=== PATIENT | female | born 1975 | race Two or more races ===

== ENCOUNTER 2024-11-28 11:00 | Inpatient (IN) | payer MEDICAID, OTHER ==
[~2024-11-28] VITALS: Ht 154.9 cm; Wt 70.5 kg
[2024-11-28 01:00] VITALS: BP_SYST 112; BP_SYST 72; BP_SYST 77; BP_DIAS 33; BP_DIAS 36; BP_DIAS 41; PULSE 70; RESP 18; TEMP 98.2; O2SAT 97
--- NOTE | 2024-11-28 11:21 | ED.PDOC ---
HPI Comments 49 year old female presents to the ED with chief complaint of syncope. Patient reports that she had a syncopal episode 2 days ago after getting up from bed, landing on her right side, hurting her right arm. Patient relays that she has frequent dizzy spells when getting up and this isn't the first time she has had a syncopal episode. Patient denies any chest pain, headache, nausea, vomiting, LOC, SOB, fever, or chills. Chief Complaint: Syncope Time Seen by MD: 11:18 Reviewed Notes: Nurses Notes, Medications, Allergies Allergies: Coded Allergies: NO KNOWN ALLERGIES (Unverified , 11/28/24) Information Source: Patient Mode of Arrival: Wheelchair Severity: Moderate Timing: Days Duration: Minutes Prehospital treatment: None Onset: At Rest Cardiac Risk Factors: Diabetes PE Risk Factors: None Associated Signs and Symptoms: Syncope Past Medical History PAST MEDICAL HISTORY: DM, Hypotension Past Medical History (Other): Glaucoma Surgical History: Denies all surgeries PROJECT FINANCE ANALYST History: No Pertinent PROJECT FINANCE ANALYST History Family History Family History: Reviewed,noncontributory to illness Social History Smoker: Non-Smoker Alcohol: Denies ETOH Use Drugs: Denies Drug Use Lives In: Home Constitutional: denies: chills, diaphoresis, fatigue, fever, malaise, sweats, weakness, others EENTM: denies: blurred vision, double vision, ear bleeding, ear discharge, ear drainage, ear pain, ear ringing, eye pain, eye redness, hearing loss, mouth pain, mouth swelling, nasal discharge, nose bleeding, nose congestion, nose pain, photophobia, tearing, throat pain, throat swelling, voice changes, others Respiratory: denies: cough, hemoptysis, orthopnea, SOB at rest, shortness of breath, SOB with excertion, stridor, wheezing, others Cardiovascular: reports: syncope; denies: chest pain, dizzy spells, diaphoresis, Dyspnea on exertion, edema, irregular heart beat, left arm pain, lightheadedness, palpitations, PND, others Gastrointestinal: denies: abdomen distended, abdominal pain, blood streaked bowels, constipated, diarrhea, dysphagia, difficulty swallowing, hematemesis, melena, nausea, poor appetite, poor fluid intake, rectal bleeding, rectal pain, vomiting, others Genitourinary: denies: abnormal vagina bleeding, burning, dyspareunia, dysuria, flank pain, frequency, hematuria, incontinence, pain, , vagina discharge, urgency, others Neurological: denies: dizziness, fainting, headache, left sided numbness, left sided weakness, numbness, paresthesia, pre-existing deficit, right sided numbness, right sided weakness, seizure, speech problems, tingling, tremors, weakness, others Musculoskeletal: reports: others (Right arm pain); denies: back pain, gout, j oint pain, joint swelling, muscle pain, muscle stiffness, neck pain Integumetry: denies: bruises, change in color, change in hair/nails, dryness, laceration, lesions, lumps, rash, wounds, others Allergic/Immunocompromised: denies: Difficulty Healing, Frequent Infections, Hives, Itching, others Hematologic/Lymphatic: denies: anemia, blood clots, easy bleeding, easy bruising, swollen glands, others Endocrine: denies: excessive hunger, excessive sweating, excessive thirst, excessive urination, flushing, intolerance to cold, intolerance to heat, unex plained weight gain, unexplained weight loss, others Psychiatric: denies: anxiety, bipolar disorder, depression, hopeless, panic disorder, schizophrenia, sleepless, suicidal, others All Other Systems: Reviewed and Negative Physical Exam General Appearance: No Apparent Distress, Normal HEENT: Normal ENT Inspection, Pharynx Normal, TMs Normal Neck: Full Range of Motion, Non-Tender, Normal, Normal Inspection Respiratory: Chest Non-Tender, Lungs Clear, No Accessory Muscle Use, No Respiratory Distress, Normal Breath Sounds Cardiovascular: No Edema, No JVD, No Murmur, No Gallop, Normal Peripheral Puls es, Regular Rate/Rhythm Breast Exam: Deferred Gastrointestinal: No Organomegaly, Non Tender, No Pulsatile Mass, Normal Bowel Sounds, Soft Genitalia: Deferred Pelvic: Deferred Rectal: Deferred Extremities: No calf tenderness, Normal capillary refill, Normal inspection, Normal range of motion, Non-tender, No pedal edema Musculoskeletal : Apperance: Normal Neurologic: Alert, teaching dietitian II-XII nml as Tested, No Motor Deficits, Normal Affect, Normal Mood, No Sensory Deficits Cerebellar Function: Normal Reflexes: Normal Skin: Dry, Normal Color, Warm Lymphatic: No Adenopathy Was a procedure done? Was a procedure done?: No CP Differential Dx Differential Diagnosis: MAT, TN, PAC's Differential Diagnosis: HTN Essential, HTN Accelerated Differential Diagnosis: Gastritis, Myocardial Infarction, Pericarditis, Other (CVA) X-Ray, Labs, Meds, VS Vital Signs Date Time Temp Pulse Resp B/P (MAP) Pulse Ox O2 Delivery O2 Flow Rate FiO2 11/28/24 13:11 130/80 (97) 11/28/24 12:34 97.9 70 17 88/52 (64) 96 97.9 11/28/24 12:34 70 17 96 Room Air* 0 21 11/28/24 11:26 72 11/28/24 11:10 98.7 71 16 169/110 (129) 97 98.7 Lab Test 11/28/24 12:48 11/28/24 12:15 11/28/24 11:32 Range/Units Troponin I High Sensitivity 3 L 4 </=34 ng/L POC Glucose 105 70-106 mg/dl White Blood Count 8.1 4.4-10.8 10^3/uL Red Blood Count 3.67 L 4.0-5.20 10^6/uL Hemoglobin 10.1 L 12.2-16.2 g/dL Hematocrit 31.1 L 36.0-46.0 % Mean Corpuscular Volume 84.7 80.0-100.0 fL Mean Corpuscular Hemoglobin 27.6 L 28.0-32.0 pg Mean Corpuscular Hemoglobin Concent 32.6 32.0-36.0 g/dL Red Cell Distribution Width 13.8 11.8-14.3 % Platelet Count 223 140-450 10^3/uL Mean Platelet Volume 10.2 6.9-10.8 fL Neutrophils (%) (Auto) 65.0 37.0-80.0 % Lymphocytes (%) (Auto) 22.3 10.0-50.0 % Monocytes (%) (Auto) 9.2 0.0-12.0 % Eosinophils (%) (Auto) 2.9 0.0-7.0 % Basophils (%) (Auto) 0.6 0.0-2.0 % Neutrophils # (Auto) 5.3 1.6-8.6 10 ^3/uL Lymphocytes # (Auto) 1.8 0.4-5.4 10 ^3/uL Monocytes # (Auto) 0.7 0-1.3 10 ^3/uL Eosinophils # (Auto) 0.2 0-0.8 10 ^3/uL Basophils # (Auto) 0.1 0-0.2 10 ^3/uL Nucleated Red Blood Cells 0.1 % Sodium Level 145 136-145 mmol/L Potassium Level 5.1 3.5-5.1 mmol/L Chloride Level 110 H 98-107 mmol/L Carbon Dioxide Level 30 20-31 mmol/L Anion Gap 5 5-15 Blood Urea Nitrogen 44 H 9-23 mg/dL Creatinine 1.99 H 0.550-1.02 mg/dL Glomerular Filtration Rate Calc 30 >90 mL/min BUN/Creatinine Ratio 22.1 H 10.0-20.0 Serum Glucose 44 *L 74-106 mg/dL Calcium Level 9.2 8.7-10.4 mg/dL Current Medications Medications (Trade) Dose Ordered Sig/Katrik Route Start Time Stop Time Status Last Admin Sodium Chloride 1,000 ml @ 1,000 mls/hr Q1H ONCE IV 11/28/24 12:30 11/28/24 13:29 DC 11/28/24 12:30 CT Head: FINDINGS: There is no intracranial hemorrhage. There is no extra-axial fluid, mass, mass effect or midline shift. The ventricles are midline and normal in size. Basilar cisterns are patent. There are mild periventricular and subcortical white matter chronic microvascular ischemic changes. Old bilateral basal ganglia lacunar infarcts. Age indeterminate infarct of the left basal ganglia. The paranasal sinuses and mastoids are well-pneumatized. Imaged portion of the orbits are unremarkable. IMPRESSION: 1. No intracranial hemorrhage or mass effect. 2. Age-indeterminate infarct of the left basal ganglia. Recommend MRI brain to evaluate for acute infarction. 3. Mild chronic microvascular ischemic changes. Chest XR: FINDINGS: Lines and Tubes: None Lungs: No focal consolidation. Pleura: No effusion. No pneumothorax. Cardiomediastinal contours: Unremarkable Bones: No acute osseous abnormality. IMPRESSION: No acute cardiopulmonary disease. Time of 1ST Reevaluation: 12:18 Reevaluation 1ST: Unchanged Patient Education/Counseling: Diagnosis, Treatment Family Education/Counseling: No Family Present Additional Information The following tests were ordered, and results were reviewed by me: CT Head, Chest XR, CBC, BMP, UA, Troponin, EKG Additional Information was gathered from interviewing the following independent historians: None I reviewed and agreed with the following test results read by other providers: CT Head, Chest XR I discussed treatment and results with medical personnel and: patient Comprehensive systems review obtained and negative except for what is stated in the HPI. Departure 1 Departure Time of Disposition: 13:54 (Patient presented with syncope today and should be admitted. Data: 1. I ordered and reviewed the result of at least 3 labs including a CBC, BMP, and troponin. 2. I independently interpreted the following tests: EKG which shows a sinus arrhythmia and a chest x-ray which shows benign chest and a CT head which shows age indeterminate infarct.Risk:This patient has a high risk of morbidity due to further diagnostic testing or treatment and may suffer from an acute cardiac, neurologic, or infectious disorder. Rationale: Patient should be admitted to the hospital for further management.) Impression: Primary Impression: Syncope and collapse Additional Impression: Abnormal head CT Disposition: ADMITTED INPATIENT Admit to: Med Surg Condition: Serious Critical Care Note Critical Care Time?: Yes Critical care comment: Syncope Authorized and Performed by: Ángel Lowe MD Total critical care time: Approximately 38 minutes Due to a high probability of clinically significant, life threatening deterioration, the patient required my highest level of preparedness to intervene emergently and I personally spent this critical care time directly and personally managing the patient. This critical care time included obtaining a history; examining the patient; pulse oximetry; ordering and review of studies; arranging urgent treatment with development of a management plan; evaluation of patient's response to treatment; frequent reassessment; and, discussions with other providers. This critical care time was performed to assess and manage the high probability of imminent, life-threatening deterioration that could result in multi-organ failure. It was exclusive of separately billable procedures and treating other patients and teaching time. Please see my other sections and the rest of the note for further information on patient assessment and treatment. Stability Stability form required: No Heart Score Heart Score: Heart Score Response (Comments) Value History Moderate Suspicious 1 EKG N/A 0 Age N/A 0 Risk Factors N/A 0 Troponin N/A 0 Total 1 I personally scribed for ÁNGEL LOWE MD ([email or web address]) on 11/28/24 at 11:21. Electronically submitted by Robert Stallworth ([email or web address]). I personally scribed for ÁNGEL LOWE MD ([email or web address]) on 11/28/24 at 13:03. Electronically submitted by Robert Stallworth ([email or web address]). ÁNGEL LOWE MD November 28, 2024 11:21
--- NOTE | 2024-11-28 11:43 | ECG ---
[facility] Test Date: 2024-11-28 Test Time: 11:26:58 Pat Name: MARI SWARTZ Department: er Room: [address] [place] [address] Gender: F Lobbyist: elvira : 1975 Requested By: ÁNGEL LOWE Order Number: [id number] Reading MD: Al Biswas Measurements Intervals [employer] Rate: 72 P: 79 ND: 172 QRS: 75 QRSD: 88 T: 20 QT: 415 QTc: 455 Interpretive Statements Sinus rhythm Baseline wander in lead(s) V6 Electronically Signed On 11-29-2024 21:12:22 PDT by Al Biswas Please click the below link to view image of tracing.
[2024-11-28 11:59] LABS: Basophils # (auto) 0.1 10 ^3/uL (0-0.2); Basophils % (auto) 0.6 % (0.0-2.0); Eosinophils # (auto) 0.2 10 ^3/uL (0-0.8); Eosinophils % (auto) 2.9 % (0.0-7.0); Hematocrit 31.1 % (36.0-46.0); Hemoglobin 10.1 g/dL (12.2-16.2); Lymphocytes # (auto) 1.8 10 ^3/uL (0.4-5.4); Lymphocytes % (auto) 22.3 % (10.0-50.0); Mean Corpuscular Hemoglobin 27.6 pg (28.0-32.0); Mean Corpuscular Hgb Conc. 32.6 g/dL (32.0-36.0); Mean Corpuscular Volume 84.7 fL (80.0-100.0); Monocytes # (auto) 0.7 10 ^3/uL (0-1.3); Monocytes % (auto) 9.2 % (0.0-12.0); Neutrophils # (auto) 5.3 10 ^3/uL (1.6-8.6); Nucleated Red Blood Cells % 0.1 %; Platelet Count (auto) 223 10^3/uL (140-450); Red Blood Cells 3.67 10^6/uL (4.0-5.20); Red Cell Distribution Width 13.8 % (11.8-14.3); White Blood Cell 8.1 10^3/uL (4.4-10.8)
[2024-11-28 12:02] LABS: Potassium 5.1 mmol/L (3.5-5.1)
[2024-11-28 12:03] LABS: Anion Gap 5 (5-15); Carbon Dioxide 30 mmol/L (20-31)
[2024-11-28 12:04] LABS: Calcium 9.2 mg/dL (8.7-10.4)
--- NOTE | 2024-11-28 12:04 | DVH ---
EXAM: XY CHEST PORTABLE Indication: syncope Technique: Single frontal view of the chest was obtained Comparison: None FINDINGS: Lines and Tubes: None Lungs: No focal consolidation. Pleura: No effusion. No pneumothorax. Cardiomediastinal contours: Unremarkable Bones: No acute osseous abnormality. IMPRESSION: No acute cardiopulmonary disease.
--- NOTE | 2024-11-28 12:07 | DVH ---
CT HEAD WITHOUT CONTRAST Indication: syncope EXAM DATE: 11/28/2024 11:21 AM COMPARISON: None TECHNIQUE: CT of the head without intravenous contrast. RADIATION DOSE: CTDIvol: 51.49 mGy, DLP: 863.9 mGy*cm FINDINGS: There is no intracranial hemorrhage. There is no extra-axial fluid, mass, mass effect or midline shif t. The ventricles are midline and normal in size. Basilar cisterns are patent. There are mild periven tricular and subcortical white matter chronic microvascular ischemic changes. Old bilateral basal migel glia lacunar infarcts. Age indeterminate infarct of the left basal ganglia. The paranasal sinuses and mastoids are well-pneumatized. Imaged portion of the orbits are unremarkabl e. IMPRESSION: 1. No intracranial hemorrhage or mass effect. 2. Age-indeterminate infarct of the left basal ganglia. Recommend MRI brain to evaluate for acute in farction. 3. Mild chronic microvascular ischemic changes.
[2024-11-28 12:08] LABS: Chloride 110 mmol/L (98-107); Sodium 145 mmol/L (136-145)
[2024-11-28 12:09] LABS: Glucose 44 mg/dL (74-106)
[2024-11-28 12:10] LABS: BUN/Creatinine Ratio 22.1 (10.0-20.0); Blood Urea Nitrogen 44 mg/dL (9-23)
[2024-11-28] MEDS: SODIUM CHLORIDE 0.9% 1,000 ML IV ONE (12:30)
[2024-11-28 12:34] VITALS: PULSE 70; RESP 17; O2SAT 96
[2024-11-28] MEDS ORDERED: EMPA1TAB3 PO (16:43)
[2024-11-28] MEDS ORDERED: INSUINJ37 SC (16:43)
[2024-11-28] MEDS ORDERED: MIDO2.5T3 PO (16:43)
[2024-11-28] MEDS ORDERED: TRAZ-228 PO (16:43)
[2024-11-28] MEDS ORDERED: INSU100I4 SC (16:43)
[2024-11-28] MEDS ORDERED: ACETAMINOPHEN 325 MG TAB PO PRN (16:45)
[2024-11-28] MEDS ORDERED: MORPHINE SULFATE INJ 2 MG/ml SYRG IV PRN (16:45)
[2024-11-28] MEDS ORDERED: NITROGLYCERIN 0.4 MG SL TAB SL PRN (16:45)
[2024-11-28] MEDS ORDERED: HYDROcodone-ACET 5/325MG TAB PO PRN (16:45)
[2024-11-28] MEDS ORDERED: ONDANSETRON HCL 4 MG/2 ML VIAL IV PRN (16:45)
[2024-11-28] MEDS ORDERED: DOCUSATE SOD 100 MG CAP PO PRN (16:45)
[2024-11-28] MEDS ORDERED: DEXTROSE (50%) 50ML SYRG IV PRN (16:45)
--- NOTE | 2024-11-28 16:46 | DVHHP2 ---
History of Present Illness Reason for Visit: Syncopal event History of Present Illness Sandra Farooq is a 49-year-old female with past medical history of diabetes, hypotension, and hyperlipidemia, who came in for syncope event. Per patient's friend, that she lives with, they were getting ready to leave the house, patient stated she felt dizzy and then had a syncopal event. Her friend tried to catch her but was unable to and she did hit her head. She then had to have someone else come help her and get her off the ground. She did regain consciousness, and was brought into the ER. patient was found to be hypoglycemic and hypotensive in the ER. She was given flood and fluids and she improved. At time of assessment patient has no complaints, speech is slightly slurred, denies any pain, headache, or dizziness. Friend also states that she is dizzy and uncoordinated at least 3 days a week, and she is wondering if her home medications are doing this to her. Cardiovascular: hyperipidemia, Other (Hypotension) Endocrine: Diabetes Past Surgical History: None Smoke: No ALCOHOL: none Drugs: None Lives: Friends Domestic Violence: Neg Review of Systems Constitutional: No: Fever, Chills, Sweats, Weakness, Malaise, Other Eyes: No: Pain, Vision change, Conjunctivae inflammation, Eyelid inflammation, Other, Redness ENT: No: Ear pain, Ear discharge, Nose pain, Nose discharge, Nose congestion, Mouth pain, Mouth swelling, Throat pain, Throat swelling, Other Respiratory: No: Cough, Dry, Shortness of breath, SOB with excertion, Wheezing, Hemoptysis, Pleuritic Pain, Sputum, Wheezing, Other Cardiovascular: No: Chest Pain, Palpitations, Orthopnea, Paroxysmal Noc. Dyspnea, Edema, Lt Headedness, Other Genitourinary: No Dysuria, No Frequency, No Incontinence, No Hematuria, No Retention, No Other Musculoskeletal: No: other, neck pain, shoulder pain, arm pain, back pain, hand pain, leg pain, foot pain Skin: No: Rash, Lesions, Jaundice, Bruising, Other Neurological: Weakness, Other (syncope); No: Numbness, Incoordination, Change in speech, Confusion, Seizures Allergies: Coded Allergies: NO KNOWN ALLERGIES (Unverified , 11/28/24) Medications Current Medications Medications Dose Ordered Sig/Kartik Route Start Time Stop Time Status Last Admin Dose Admin Sodium Chloride 10 ml Q8HR IV 11/28/24 22:00 UNV Acetaminophen/ Hydrocodone Bitart 1 tab Q4HP PRN PO 11/28/24 16:45 UNV Ondansetron HCl 4 mg Q4HP PRN IV 11/28/24 16:45 UNV Docusate Sodium 100 mg BIDPRN PRN PO 11/28/24 16:45 UNV Acetaminophen 650 mg Q6HP PRN PO 11/28/24 16:45 UNV Nitroglycerin 0.4 mg Q5MINP PRN SL 11/28/24 16:45 UNV Morphine Sulfate 2 mg Q30M PRN IV 11/28/24 16:45 UNV Exam Vital Signs Vital Signs Date Time Temp Pulse Resp B/P (MAP) Pulse Ox O2 Delivery O2 Flow Rate FiO2 11/28/24 13:11 130/80 (97) 11/28/24 12:34 97.9 70 17 96 97.9 11/28/24 12:34 Room Air* 0 21 General Appearance: Alert, Oriented X3, Cooperative, No acute distress HEENT: Atraumatic, PERRLA, Other (Mucous Mem dry) Respiratory: Clear to auscultation, Normal air movement Cardiovascular: Regular rate, Normal S1, Normal S2 Abdominal: Normal bowel sounds, Soft, No tenderness, No hepatospenomegaly Extremities: No clubbing, No cyanosis, No edema, Normal pulses, No tenderness/swelling Skin: No rashes, No breakdown, No significant lesion Neuro: Normal gait, Normal speech, Strength at 5/5 X4 ext, Normal tone Psych/Mental Status: Mental status NL, Mood NL Labs/Xrays Labs Test 11/28/24 14:24 11/28/24 12:15 11/28/24 11:32 Range/Units Troponin I High Sensitivity 3 L </=34 ng/L POC Glucose 105 70-106 mg/dl White Blood Count 8.1 4.4-10.8 10^3/uL Red Blood Count 3.67 L 4.0-5.20 10^6/uL Hemoglobin 10.1 L 12.2-16.2 g/dL Hematocrit 31.1 L 36.0-46.0 % Mean Corpuscular Volume 84.7 80.0-100.0 fL Mean Corpuscular Hemoglobin 27.6 L 28.0-32.0 pg Mean Corpuscular Hemoglobin Concent 32.6 32.0-36.0 g/dL Red Cell Distribution Width 13.8 11.8-14.3 % Platelet Count 223 140-450 10^3/uL Mean Platelet Volume 10.2 6.9-10.8 fL Neutrophils (%) (Auto) 65.0 37.0-80.0 % Lymphocytes (%) (Auto) 22.3 10.0-50.0 % Monocytes (%) (Auto) 9.2 0.0-12.0 % Eosinophils (%) (Auto) 2.9 0.0-7.0 % Basophils (%) (Auto) 0.6 0.0-2.0 % Neutrophils # (Auto) 5.3 1.6-8.6 10 ^3/uL Lymphocytes # (Auto) 1.8 0.4-5.4 10 ^3/uL Monocytes # (Auto) 0.7 0-1.3 10 ^3/uL Eosinophils # (Auto) 0.2 0-0.8 10 ^3/uL Basophils # (Auto) 0.1 0-0.2 10 ^3/uL Nucleated Red Blood Cells 0.1 % Sodium Level 145 136-145 mmol/L Potassium Level 5.1 3.5-5.1 mmol/L Chloride Level 110 H 98-107 mmol/L Carbon Dioxide Level 30 20-31 mmol/L Anion Gap 5 5-15 Blood Urea Nitrogen 44 H 9-23 mg/dL Creatinine 1.99 H 0.550-1.02 mg/dL Glomerular Filtration Rate Calc 30 >90 mL/min BUN/Creatinine Ratio 22.1 H 10.0-20.0 Serum Glucose 44 *L 74-106 mg/dL Calcium Level 9.2 8.7-10.4 mg/dL EXAM: XY CHEST PORTABLE FINDINGS: Lines and Tubes: None Lungs: No focal consolidation. Pleura: No effusion. No pneumothorax. Cardiomediastinal contours: Unremarkable Bones: No acute osseous abnormality. IMPRESSION: No acute cardiopulmonary disease. CT HEAD WITHOUT CONTRAST FINDINGS: There is no intracranial hemorrhage. There is no extra-axial fluid, mass, mass effect or midline shift. The ventricles are midline and normal in size. Basilar cisterns are patent. There are mild periventricular and subcortical white matter chronic microvascular ischemic changes. Old bilateral basal ganglia lacunar infarcts. Age indeterminate infarct of the left basal ganglia. The paranasal sinuses and mastoids are well-pneumatized. Imaged portion of the orbits are unremarkable. IMPRESSION: 1. No intracranial hemorrhage or mass effect. 2. Age-indeterminate infarct of the left basal ganglia. Recommend MRI brain to evaluate for acute infarction. 3. Mild chronic microvascular ischemic changes. Assessment/Plan Assessment/Plan Assessment: Syncope and collapse, Possible stroke, Hypoglycemia, Hypotension, Diabetes, Hyperlipidemia, Plan: Admit to Tele, Neurology consult, MRI of brain, IV hydration, Accu checks Q AC&HS with sliding scale, Home medications reconciled, Plan discussed with: Patient, Other (friend) My Orders Orders - LILIANA BARNARD Procedure Category Date Status Time Admit ADMIT 11/28/24 Transmitted 16:39 Code Status CODE 11/28/24 Transmitted 16:39 2 Gm Sodium Diet DIET 11/28/24 Transmitted Dinner Sodium Chloride Lock PHA 11/28/24 Logged (Saline Lock Ns) 22:00 Hydrocodone-Acet PHA 11/28/24 Logged 5/325mg Tab (Montchanin 16:45 Ondansetron Hcl PHA 11/28/24 Logged (Zofran) 16:45 Docusate Sodium PHA 11/28/24 Logged Capsule (Colace 16:45 Fall Risk Precautions ESPERANZA 11/28/[address] 16:39 Complete Blood Count LAB 11/29/24 Verified 04:00 Comprehensive LAB 11/29/24 Verified Metabolic Panel 04:00 Condition: Serious ESPERANZA 11/28/24 In Process 16:39 Acetaminophen Tablet PHA 11/28/24 Logged (Tylenol Tablet) 16:45 Nitroglycerin PHA 11/28/24 Logged Sublingual (Ntrostat 16:45 Morphine Sulfate PHA 11/28/24 Logged Injection 16:45 Stat Ekg For Chest ESPERANZA 11/28/24 In Process Pain 16:39 Notify Md Of Changes ESPERANZA 11/28/24 In Process From Base 16:39 Needle Maker For ESPERANZA 11/28/24 In Process 24 Hours 16:39 Emergency Dysrhythmia ESPERANZA 11/28/24 In Process Protocol 16:39 Rhythm Strips Once ESPERANZA 11/28/24 In Process Every Shift 16:39 Oxygen By Nasal RT 11/28/24 Transmitted Cannula 16:39 Glucose Blood PHA 11/28/24 Logged (Accu-Chek Comfort 17:00 Insulin R (Human) PHA 11/28/24 Logged (Insulin R) 17:00 Dextrose 50% Syringe PHA 11/28/24 Logged 16:45 (Nf) Empagliflozin PHA 11/29/24 Logged (Jardiance) 10:00 (Nf) Insulin Glargine PHA 11/28/24 Logged (Lantus Solostar) 22:00 (Nf) Midodrine Hcl PHA 11/28/24 Logged 22:00 (Nf) Trazodone Hcl PHA 11/28/24 Logged 22:00 Date of Service: November 28, 2024 Billing Provider: LILIANA BARNARD Common Visit Codes: [id number] INP/OBS CARE (MOD) LILIANA BARNARD November 28, 2024 16:46
--- NOTE | 2024-11-28 17:35 | DVH ---
PROCEDURE: MRI BRAIN HEAD WO CONTRAST INDICATION: concern for cva EXAM DATE: 11/28/2024 04:46 PM COMPARISON: None TECHNIQUE: MRI of the brain without intravenous contrast. FINDINGS: Diffusion weighted images of the brain demonstrate no evidence of acute infarction. There is no evidence of acute intracranial hemorrhage, extra-axial collection, mass effect, midline s hift, herniation or hydrocephalus. The ventricles, sulci and cisterns appear age appropriate. [id number] changes of chronic microvascular ischemic disease with involvement of the werner. Old lacunar infarct in the left basal ganglia. There are no signal abnormalities on the susceptibility weighted sequences. The major vascular flow voids are present. The visualized paranasal sinuses and mastoid air cells are clear. The surrounding soft tissues and o sseous structures are unremarkable. IMPRESSION: 1. No evidence of acute infarction, intracranial hemorrhage, mass effect or hydrocephalus. Mild-to-mo derate changes of chronic microvascular ischemic disease. Old lacunar infarct in the left basal gang romeo. HS:Y
[2024-11-28] MEDS: ACCU-CHEK COMFORT CURVE STRIP VI SCH (18:46)
[2024-11-28] MEDS: InsuLIN REG 1unit/0.01ml Soln (100units/ml) SC SCH (18:49)
[2024-11-28 19:26] VITALS: BP 162/77; PULSE 76; RESP 18; TEMP 97.3; O2SAT 97
[2024-11-28 20:00] VITALS: PULSE 73
[2024-11-28 21:00] VITALS: BP 162/77; PULSE 77; RESP 16; TEMP 97.3; O2SAT 97
--- NOTE | 2024-11-28 21:39 | DVHINCON2 ---
Date of service: November 28, [address] Avila Reason for Consultation Age indeterminate infarct on CT History of Present Illness Ms. Chinedu jones is a 49 years old right-handed female with a history of hypertension, diabetes, glaucoma, overweight, she came to the [facility] on 11/28/2024 with a chief complaint of syncopal event on 11/26/2024, in the hospital, she was found to have clonic stroke. At this time, she was alert and fully oriented, she provided the following history without bilingual staff's help In [id number], she was acute slurred speech, she was seen in the local hospital in the [place], and she was said to have stroke, she does not remember having ultrasound to neck, heart, she does not remember how she was treated, she does not remember if he was prescribed aspirin/blood thinner and cholesterol medication on discharge, at home, she was not on secondary stroke preventive treatment On 11/26/2024, when she was approaching her walker, she developed dizziness/lightheadedness, a feeling that her sugar and blood pressure was low, followed by passing out for 5 minutes, but waking up with clear mind. She denies associated vision changes, hot feeling, palpitation, chest pain, nausea, sweating. Since 04/2024, the patient has similar passing out about 4 times monthly, but she was only passed out briefly, and she woke up remembered what she was doing. She did not brain herself to medical attention, and her family thought she was crazy Midodrine, Lipitor 40 mg day was in her home medication list according to our record Hypoglycemia and spell of hypotension noticed in the emergency room WBC/HB/PLT/MCV, 11/28/2024: 8.1/10.1/223/84.7 BUN/CR, 11/28/2024: 44/1.99 Glucose, 11/28/2024: 44 CT head, 11/28/2024: 1. No intracranial hemorrhage or mass effect. 2. Age- indeterminate infarct of the left basal ganglia. Recommend MRI brain to evaluate for acute infarction. 3. Mild chronic microvascular ischemic changes. MRI head, 11/28/2024: No evidence of acute infarction, intracranial hemorrhage, mass effect or hydrocephalus. Wsis-po-igalhhzl changes of chronic microvascular ischemic disease. Old lacunar infarct in the left basal ganglia Past Medical History Hypertension, diabetes, glaucoma Past Surgical History No major surgeries Family History: Hypertension G8 MOTHER Family History Hypertension Social History She was not a tobacco smoke, she denies a history of alcohol or recreational substance abuse Allergies: Coded Allergies: NO KNOWN ALLERGIES (Unverified , 11/28/24) Home Meds Reported Medications Empagliflozin (Jardiance) 25 Mg Tab, 1 TAB PO DAILY 11/28/24 Trazodone Hcl (Trazodone Hcl) 100 Mg Tab, 1 TAB PO HS 11/28/24 Insulin Lispro (Humalog Kwikpen) 100 Unit/Ml Inj, 2 UNITS SC QAM 11/28/24 Midodrine Hcl (Midodrine Hcl) 2.5 Mg Tab, 1 TAB PO BID 11/28/24 Insulin Glargine (Lantus Solostar) 100 Unit/Ml Inj, 10 UNITS SC HS 11/28/24 Current Medications Current Medications Medications (Trade) Dose Ordered Sig/Kartik Route PRN Reason Start Time Stop Time Status Last Admin Sodium Chloride (Saline Lock Ns) 10 ml Q8HR IV 11/28/24 22:00 Acetaminophen/ Hydrocodone Bitart ([place] 5/325MG Tab) 1 tab Q4HP PRN PO MODERATE PAIN (4-6 PAIN SCALE) 11/28/24 16:45 Ondansetron HCl (Zofran) 4 mg Q4HP PRN IV NAUSEA / VOMITING 11/28/24 16:45 Docusate Sodium (Colace Capsule) 100 mg BIDPRN PRN PO FOR CONSTIPATION 11/28/24 16:45 Acetaminophen (Tylenol Tablet) 650 mg Q6HP PRN PO PAIN SCALE 1-3 OR TEMP>100.4 11/28/24 16:45 Nitroglycerin (Ntrostat Sublingual) 0.4 mg Q5MINP PRN SL FOR CHEST PAIN 11/28/24 16:45 Morphine Sulfate 2 mg Q30M PRN IV FOR CHEST PAIN 11/28/24 16:45 Diagnostic Test (Pha) (Accu-Chek Comfort Curve T) 1 strip ACHS 11/28/24 17:00 11/28/24 18:46 Insulin Human Regular (InsuLIN R) ACHS SC 11/28/24 17:00 11/28/24 18:49 Dextrose 50 ml UD PRN IV Blood Sugar LESS THAN 60 11/28/24 16:45 Patient Own Medication 1 tab DAILY PO 11/29/24 10:00 Insulin Glargine (Lantus) 10 units HS SC 11/28/24 22:00 Patient Own Medication 1 tab BID PO 11/28/24 22:00 Trazodone HCl (Desyrel) 100 mg HS PO 11/28/24 22:00 Clonidine HCl (Catapres Tablet) 0.1 mg Q6HP PRN PO SBP>160 11/28/24 20:30 Review of Systems As above, the other systems are negative Vital Signs Vital Signs Date Time Temp Pulse Resp B/P (MAP) Pulse Ox O2 Delivery O2 Flow Rate FiO2 11/28/24 19:26 97.3 76 18 162/77 (105) 97 97.3 11/28/24 12:34 Room Air* 0 21 Physical Exam GENERAL EXAM: General: the patient is well developed and nourished. No acute distress. HEENT: Normocephalic, neck is supple, no carotid bruits. No mass. RESPIRATORY: Normal respiratory effort with symmetrical lung expansion. Lungs clear to auscultation. CARDIOVASCULAR: Regular rate and rhythm with no murmurs. S1, S2. ABDOMEN: Soft, nontender, normal bowel sound NEUROLOGICAL: MENTAL STATUS: Awake and alert. Oriented to person, place, time and general circumstances. Able to give personal history. SPEECH, LANGUAGE, HIGHER CORTICAL FUNCTION: no aphasia or dysathria. CRANIAL NERVES: #2: Intact visual hernandez to confrontation. The optic discs were sharp. #3,4,6: Pupils are equal, round and reactive. EOMs full and conjugate. No nystagmus. #5: Facial sensation intact in all three divisions bilaterally. Mandibular strength intact. #7: Facial muscles symmetrical and strength intact. #8: Hearing grossly normal to voice. #9,10: Uvula and soft palate rise in the midline. Swallow and voice are normal. #11: Trapezius and sternomastoid strength intact bilaterally. #12: Tongue midline. No fasciculations or atrophy. SENSATION: Sensation to touch and pinprick is normal. MOTOR: Normal tone in the upper and lower extremity. Normal muscle bulk. No fasciculations. No abnormal movements or posturing. Muscle strength of the major groups in the upper extremities is 5/5. Muscle strength of the major groups in the lower extremities is 5/5. REFLEXES: Deep tendon reflexesare symmetrical. No pathological reflexes. CEREBELLAR/COORDINATION: Finger to nose and heel to ocampo are normal bilaterally. GAIT/STATION: deferred Labs/Diagnostic Data Labs Test 11/28/24 18:45 11/28/24 14:24 11/28/24 11:32 Range/Units POC Glucose 205 H 70-106 mg/dl Troponin I High Sensitivity 3 L </=34 ng/L White Blood Count 8.1 4.4-10.8 10^3/uL Red Blood Count 3.67 L 4.0-5.20 10^6/uL Hemoglobin 10.1 L 12.2-16.2 g/dL Hematocrit 31.1 L 36.0-46.0 % Mean Corpuscular Volume 84.7 80.0-100.0 fL Mean Corpuscular Hemoglobin 27.6 L 28.0-32.0 pg Mean Corpuscular Hemoglobin Concent 32.6 32.0-36.0 g/dL Red Cell Distribution Width 13.8 11.8-14.3 % Platelet Count 223 140-450 10^3/uL Mean Platelet Volume 10.2 6.9-10.8 fL Neutrophils (%) (Auto) 65.0 37.0-80.0 % Lymphocytes (%) (Auto) 22.3 10.0-50.0 % Monocytes (%) (Auto) 9.2 0.0-12.0 % Eosinophils (%) (Auto) 2.9 0.0-7.0 % Basophils (%) (Auto) 0.6 0.0-2.0 % Neutrophils # (Auto) 5.3 1.6-8.6 10 ^3/uL Lymphocytes # (Auto) 1.8 0.4-5.4 10 ^3/uL Monocytes # (Auto) 0.7 0-1.3 10 ^3/uL Eosinophils # (Auto) 0.2 0-0.8 10 ^3/uL Basophils # (Auto) 0.1 0-0.2 10 ^3/uL Nucleated Red Blood Cells 0.1 % Sodium Level 145 136-145 mmol/L Potassium Level 5.1 3.5-5.1 mmol/L Chloride Level 110 H 98-107 mmol/L Carbon Dioxide Level 30 20-31 mmol/L Anion Gap 5 5-15 Blood Urea Nitrogen 44 H 9-23 mg/dL Creatinine 1.99 H 0.550-1.02 mg/dL Glomerular Filtration Rate Calc 30 >90 mL/min BUN/Creatinine Ratio 22.1 H 10.0-20.0 Serum Glucose 44 *L 74-106 mg/dL Calcium Level 9.2 8.7-10.4 mg/dL Assessment Abnormal MRI/CT scan, secondary to closed stroke in [id number] Dizziness Frequent passing out Syncope Partial complex seizure, less likely Plan/Recommendation Monitoring Supportive treatment Telemetry Orthostatic vitals Cardiology evaluation EEG Echocardiogram Carotid Doppler DVT profile Aspirin 81 mg daily Lipitor 40 mg daily (external medical history) Syncope precautions discussed Good hydration More recommendation per clinical course Progress: Poor This medical document was created using an electronic medical record system with Shoto dictation system. Although this document has been carefully reviewed, there may still be some phonetic and typographical errors. These areas are purely typographical due to imperfections of the software programs, and do not reflect any compromise in the patient's medical care. Plan discussed with: Patient, Other SABINA SINGH MD November 28, 2024 21:39
[2024-11-28] MEDS: MIDODRINE HCL 2.5 MG PO SCH (22:00)
[2024-11-28] MEDS: SODIUM CHLOR 0.9% PF (SALINE LOCK) 10ML VIAL/SYR IV SCH (22:25)
[2024-11-28] MEDS: INSULIN LANTUS (GLARGINE) 1 /0.01ml (100units/ml) SC SCH (22:29)
[2024-11-28] MEDS: traZODone HCL 50 MG TAB PO SCH (22:30)
[2024-11-28] MEDS: cloNIDine HCL 0.1 MG TAB PO PRN (22:33)
[2024-11-28 22:42] LABS: Triglycerides 70 mg/dL (< 150)
[2024-11-28 22:43] LABS: LDL Cholesterol 83 mg/dL (< 100)
[2024-11-28 22:44] LABS: Cholesterol 155 mg/dL (< 200); HDL Cholesterol 58 mg/dL (40-59)
[2024-11-29] VITALS (9 sets, daily range): BP systolic 112–140; BP diastolic 36–65; PULSE 64–72; RESP 18–20; TEMP 97.4–98.2; O2SAT 95–100
--- NOTE | 2024-11-29 02:08 | DVH ---
Carotid Duplex Clinical History: CVA Comparison: None Technique: Duplex Doppler evaluation of the extracranial carotid and vertebral arteries including color Doppler and spectral/pulsed waveform analysis was performed. Findings: RIGHT SIDE: Evidence of very mild atherosclerotic plaque at the right carotid bifurcation. The peak systolic velocities are 37 cm/s in the CCA, 54 cm/s in the ICA. The ICA/CCA ratio is 1.5. The external carotid artery is patent with peak systolic velocity of 129 cm/s proximally. There is appropriate antegrade flow in the right vertebral artery. LEFT SIDE: Evidence of minimal atherosclerotic plaque at the left carotid bifurcation. The peak systolic velocities are 69 cm/s in the CCA, 71 cm/s in the ICA. The ICA/CCA ratio is 1.0. The external carotid artery is patent with peak systolic velocity of 85 cm/s proximally. There is appropriate antegrade flow in the left vertebral artery. IMPRESSION: No evidence of hemodynamically significant stenosis in the carotid arteries. Reference: Radiology 2003; 229:340-346 Normal ICA PSV is <125 cm/sec and no plaque or intimal thickening is visible sonographically addition al criteria include ICA/CCA PSV ratio <2.0 and ICA EDV <40 cm/sec <50% ICA stenosis ICA PSV is <125 cm/sec and plaque or intimal thickening is visible sonographically additional criteria include ICA/CCA PSV ratio <2.0 and ICA EDV <40 cm/sec 50-69% ICA stenosis ICA PSV is 125-230 cm/sec and plaque is visible sonographically additional criter ia include ICA/CCA PSV ratio of 2.0-4.0 and ICA EDV of 40-100 cm/sec 70% ICA stenosis but less than near occlusion ICA PSV is >230 cm/sec and visible plaque and luminal narrowing are seen at gupta-scale and color Doppler ultrasound (the higher the Doppler parameters lie above the threshold of 230 cm/sec, the greater the likelihood of severe disease) additional criteria include ICA/CCA PSV ratio >4 and ICA EDV >100 cm/sec
[2024-11-29 05:47] LABS: Basophils # (auto) 0 10 ^3/uL (0-0.2); Basophils % (auto) 0.6 % (0.0-2.0); Eosinophils # (auto) 0.3 10 ^3/uL (0-0.8); Hematocrit 28.3 % (36.0-46.0); Hemoglobin 9.5 g/dL (12.2-16.2); Lymphocytes # (auto) 2.4 10 ^3/uL (0.4-5.4); Lymphocytes % (auto) 32.2 % (10.0-50.0); Mean Corpuscular Hemoglobin 27.9 pg (28.0-32.0); Mean Corpuscular Hgb Conc. 33.4 g/dL (32.0-36.0); Mean Corpuscular Volume 83.6 fL (80.0-100.0); Monocytes # (auto) 0.6 10 ^3/uL (0-1.3); Monocytes % (auto) 8.5 % (0.0-12.0); Neutrophils % (auto) 54.7 % (37.0-80.0); Platelet Count (auto) 204 10^3/uL (140-450); Red Blood Cells 3.39 10^6/uL (4.0-5.20); Red Cell Distribution Width 13.9 % (11.8-14.3); White Blood Cell 7.3 10^3/uL (4.4-10.8)
[2024-11-29 06:01] LABS: Alanine Aminotransferase 11 U/L (7-40); Albumin 3.7 g/dL (3.2-4.8); Alkaline Phosphatase 76 U/L (46-116); Anion Gap 5 (5-15); BUN/Creatinine Ratio 22.3 (10.0-20.0); Bilirubin, Total 0.3 mg/dL (0.2-1.0); Calcium 9.2 mg/dL (8.7-10.4); Carbon Dioxide 28 mmol/L (20-31); Sodium 144 mmol/L (136-145); Total Protein 5.8 g/dL (5.7-8.2)
[2024-11-29 06:32] LABS: Aspartate Aminotransferase 11 U/L (13-40); Blood Urea Nitrogen 37 mg/dL (9-23); Chloride 111 mmol/L (98-107); Glucose 108 mg/dL (74-106)
[2024-11-29] MEDS: ASPirin 81 mg TAB PO SCH (09:22)
[2024-11-29] MEDS: Empagliflozin (Jardiance) 25 MG TAB PO SCH (09:22)
--- NOTE | 2024-11-29 13:14 | DVHPN2 ---
Reviewed: Care Plan, H&P, Labs, Medications, Previous Orders, Radiology Changes from previous H/P or p: No Changes Eyes: No Pain, No Vision change, No Conjunctivae inflammation, No Eyelid inflammation, No Other, No Redness ENT: No Ear pain, No Ear discharge, No Nose pain, No Nose discharge, No Nose congestion, No Mouth pain, No Mouth swelling, No Throat pain, No Throat swelling, No Other Cardiovascular: No Chest Pain, No Palpitations, No Orthopnea, No Paroxysmal Noc. Dyspnea, No Edema, No Lt Headedness, No Other Respiratory: No Cough, No Dry, No Shortness of breath, No SOB with excertion, No Wheezing, No Hemoptysis, No Pleuritic Pain, No Sputum, No Other Genitourinary: No Dysuria, No Frequency, No Incontinence, No Hematuria, No Retention, No Other Musculoskeletal: No other, No neck pain, No shoulder pain, No arm pain, No back pain, No hand pain, No leg pain, No foot pain Skin: No Rash, No Lesions, No Jaundice, No Bruising, No Other Objective Vitals Vital Signs Date Time Temp Pulse Resp B/P (MAP) Pulse Ox O2 Delivery O2 Flow Rate FiO2 11/29/24 09:09 97.5 65 20 114/60 (78) 98 97.5 11/29/24 08:00 Room Air* 0 21 Intake/Output Intake and Output 11/29/24 07:00 Intake Total 1120 ml Balance 1120 ml Intake Oral 120 ml IV Total 1000 ml Medications Current Medications Medications Dose Ordered Sig/Kartik Route Start Time Stop Time Status Last Admin Dose Admin Sodium Chloride 10 ml Q8HR IV 11/28/24 22:00 11/29/24 05:55 10 ML Acetaminophen/ Hydrocodone Bitart 1 tab Q4HP PRN PO 11/28/24 16:45 Ondansetron HCl 4 mg Q4HP PRN IV 11/28/24 16:45 Docusate Sodium 100 mg BIDPRN PRN PO 11/28/24 16:45 Acetaminophen 650 mg Q6HP PRN PO 11/28/24 16:45 Nitroglycerin 0.4 mg Q5MINP PRN SL 11/28/24 16:45 Morphine Sulfate 2 mg Q30M PRN IV 11/28/24 16:45 Diagnostic Test (Pha) 1 strip ACHS 11/28/24 17:00 11/29/24 11:40 1 STRIP Insulin Human Regular ACHS SC 11/28/24 17:00 11/29/24 11:41 3 UNITS Dextrose 50 ml UD PRN IV 11/28/24 16:45 Patient Own Medication 1 tab DAILY PO 11/29/24 10:00 Insulin Glargine 10 units HS SC 11/28/24 22:00 11/28/24 22:29 10 UNITS Patient Own Medication 1 tab BID PO 11/28/24 22:00 Trazodone HCl 100 mg HS PO 11/28/24 22:00 11/28/24 22:30 100 MG Clonidine HCl 0.1 mg Q6HP PRN PO 11/28/24 20:30 11/28/24 22:33 0.1 MG Aspirin 81 mg DAILY PO 11/29/24 10:00 11/29/24 09:22 81 MG Atorvastatin Calcium 40 mg HS PO 11/29/24 22:00 Laboratory Results Laboratory Tests 11/29/24 05:20 Chemistry Test 11/29/24 05:20 Albumin 3.7 g/dL (3.2-4.8) Calcium Level 9.2 mg/dL (8.7-10.4) Total Protein 5.8 g/dL (5.7-8.2) Lipid panel Test 11/28/24 14:24 Cholesterol Level 155 mg/dL (< 200) HDL Cholesterol 58 mg/dL (40-59) Triglycerides Level 70 mg/dL (< 150) LFT Test 11/29/24 05:20 Alanine Aminotransferase (ALT) 11 U/L (7-40) Alkaline Phosphatase 76 U/L (46-116) Aspartate Amino Transferase (AST) 11 U/L (13-40) L Total Bilirubin 0.3 mg/dL (0.2-1.0) Labs and/or images reviewed: Labs reviewed by me, Image(s) reviewed by me Assessment/Plan Assessment/Plan Syncope with acute hypotension blood pressure 77/41 rule out cardiac etiology: Echocardiogram cardiology consult for Dr. Biswas Neurology consult for Dr. Crook Chest x-ray negative carotid ultrasound negative CT head negative MRI brain negative Urine drug screen and blood alcohol level ordered Diabetes Acute hypoglycemia blood sugar 45 Hypercholesterolemia Time spent 50 minutes Plan discussed with: Patient My Orders Orders - RONEN CAMPOS MD Procedure Category Date Status Time * Cardiology Consult CONS 11/29/24 Transmitted 13:07 * Neurology Consult CONS 11/29/24 Transmitted 13:07 Drug Screen LAB 11/29/24 Verified 13:10 Blood Alcohol LAB 11/29/24 Verified 13:10 Communication Order ORDERS 11/29/24 Verified 13:10 Date of Service: November 29, 2024 Billing Provider: RONEN CAMPOS MD Common Visit Codes: [id number] INP/OBS CARE(HIGH) RONEN CAMPOS MD November 29, 2024 13:14
--- NOTE | 2024-11-29 14:17 | DVHINCON2 ---
Date Seen: November 29, 2024 Referring Physician MD Gumaro Reason for Consultation Syncope History of Present Illness This is a 49-year-old female who presented to the emergency room with a chief complaint of syncopal event. The patient reports she experienced sudden onset of dizziness and a subsequent syncopal event with her friend break in the fall. Upon regaining consciousness she presented to the emergency room where she was found with a blood glucose level of 44 mg/dL and a systolic blood pressure of 70s mmHg. Per patient, she took more than her regular insulin as she was going to eat out. She usually takes 3 units but instead took 5 units. She was administered an orange juice and IV fluids with symptoms resolved. Denies any further complains of dizziness. She also denies any cardiac symptoms. Significant medical history includes insulin-dependent diabetes mellitus, dyslipidemia, and obesity. Past Medical History Past medical history reviewed. No other significant than mentioned above. Past Surgical History Past surgical history reviewed. No other significant than mentioned above. Family History: Hypertension G8 MOTHER Family History Family history reviewed. Social History Denies the use of illicit drugs, alcohol, or tobacco use. Allergies: Coded Allergies: NO KNOWN ALLERGIES (Unverified , 11/28/24) Home Meds Reported Medications Empagliflozin (Jardiance) 25 Mg Tab, 1 TAB PO DAILY 11/28/24 Trazodone Hcl (Trazodone Hcl) 100 Mg Tab, 1 TAB PO HS 11/28/24 Insulin Lispro (Humalog Kwikpen) 100 Unit/Ml Inj, 2 UNITS SC QAM 11/28/24 Midodrine Hcl (Midodrine Hcl) 2.5 Mg Tab, 1 TAB PO BID 11/28/24 Insulin Glargine (Lantus Solostar) 100 Unit/Ml Inj, 10 UNITS SC HS 11/28/24 Home Meds Home medications reviewed. Current Medications Current Medications Medications (Trade) Dose Ordered Sig/Kartik Route PRN Reason Start Time Stop Time Status Last Admin Sodium Chloride (Saline Lock Ns) 10 ml Q8HR IV 11/28/24 22:00 11/29/24 05:55 Acetaminophen/ Hydrocodone Bitart ([place] 5/325MG Tab) 1 tab Q4HP PRN PO MODERATE PAIN (4-6 PAIN SCALE) 11/28/24 16:45 Ondansetron HCl (Zofran) 4 mg Q4HP PRN IV NAUSEA / VOMITING 11/28/24 16:45 Docusate Sodium (Colace Capsule) 100 mg BIDPRN PRN PO FOR CONSTIPATION 11/28/24 16:45 Acetaminophen (Tylenol Tablet) 650 mg Q6HP PRN PO PAIN SCALE 1-3 OR TEMP>100.4 11/28/24 16:45 Nitroglycerin (Ntrostat Sublingual) 0.4 mg Q5MINP PRN SL FOR CHEST PAIN 11/28/24 16:45 Morphine Sulfate 2 mg Q30M PRN IV FOR CHEST PAIN 11/28/24 16:45 Diagnostic Test (Pha) (Accu-Chek Comfort Curve T) 1 strip ACHS 11/28/24 17:00 11/29/24 11:40 Insulin Human Regular (InsuLIN R) ACHS SC 11/28/24 17:00 11/29/24 11:41 Dextrose 50 ml UD PRN IV Blood Sugar LESS THAN 60 11/28/24 16:45 Patient Own Medication 1 tab DAILY PO 11/29/24 10:00 Insulin Glargine (Lantus) 10 units HS SC 11/28/24 22:00 11/28/24 22:29 Patient Own Medication 1 tab BID PO 11/28/24 22:00 Trazodone HCl (Desyrel) 100 mg HS PO 11/28/24 22:00 11/28/24 22:30 Clonidine HCl (Catapres Tablet) 0.1 mg Q6HP PRN PO SBP>160 11/28/24 20:30 11/28/24 22:33 Aspirin 81 mg DAILY PO 11/29/24 10:00 11/29/24 09:22 Atorvastatin Calcium (Lipitor) 40 mg HS PO 11/29/24 22:00 Review of Systems Constitutional: No symptom reported Ears, Nose, & Throat: No symptom reported Eyes: No symptom reported Neurological: Dizziness, syncope Pulmonary/Respiratory: No symptom reported Cardiovascular: No symptom reported Gastrointestinal: No symptom reported Genitourinary: No symptom reported Musculoskeletal: No symptom reported Skin: No symptom reported Psychiatric: No symptom reported Endocrine: No symptom reported Hemotologic/Lymphatic: No symptom reported Vital Signs Vital Signs Date Time Temp Pulse Resp B/P (MAP) Pulse Ox O2 Delivery O2 Flow Rate FiO2 11/29/24 13:11 98.0 64 20 119/57 (77) 97 98.0 11/29/24 08:00 Room Air* 0 21 Physical Exam General Appearance: Cooperative. Well developed. Obese. In no acute distress Head Exam: Normal inspection Neck Exam: Normal inspection. Non-tender. Normal alignment Pulmonary/Respiratory: Chest non-tender. Clear bilateral breath sounds Cardiovascular/Chest: Regular rate and rhythm. S1, S2. No murmurs. No JVD. Peripheral Pulses: 2+ Radial (R). 2+ Radial (L). 2+ Pedal (R). 2+ Pedal (L) Abdominal Exam: Normal bowel sounds. Soft. Nontender. No hepatospenomegaly. No masses Ankle Exam: Negative ankle edema Lower extremities: Negative lower extremity edema Neuro/Mental Status: A&O x3. Slight cognitive delay present Thoughts/Psych: Normal thought pattern. Appropriate mood and affect. Good judgement and insight Appearance: In no acute distress Skin Exam: Normal inspection. Normal color. Warm. Dry Labs/Diagnostic Data Labs Test 11/29/24 05:20 11/28/24 22:01 11/28/24 14:24 Range/Units White Blood Count 7.3 4.4-10.8 10^3/uL Red Blood Count 3.39 L 4.0-5.20 10^6/uL Hemoglobin 9.5 L 12.2-16.2 g/dL Hematocrit 28.3 L 36.0-46.0 % Mean Corpuscular Volume 83.6 80.0-100.0 fL Mean Corpuscular Hemoglobin 27.9 L 28.0-32.0 pg Mean Corpuscular Hemoglobin Concent 33.4 32.0-36.0 g/dL Red Cell Distribution Width 13.9 11.8-14.3 % Platelet Count 204 140-450 10^3/uL Mean Platelet Volume 9.9 6.9-10.8 fL Neutrophils (%) (Auto) 54.7 37.0-80.0 % Lymphocytes (%) (Auto) 32.2 10.0-50.0 % Monocytes (%) (Auto) 8.5 0.0-12.0 % Eosinophils (%) (Auto) 4.0 0.0-7.0 % Basophils (%) (Auto) 0.6 0.0-2.0 % Neutrophils # (Auto) 4.0 1.6-8.6 10 ^3/uL Lymphocytes # (Auto) 2.4 0.4-5.4 10 ^3/uL Monocytes # (Auto) 0.6 0-1.3 10 ^3/uL Eosinophils # (Auto) 0.3 0-0.8 10 ^3/uL Basophils # (Auto) 0 0-0.2 10 ^3/uL Nucleated Red Blood Cells 0.0 % Sodium Level 144 136-145 mmol/L Potassium Level 5.0 3.5-5.1 mmol/L Chloride Level 111 H 98-107 mmol/L Carbon Dioxide Level 28 20-31 mmol/L Anion Gap 5 5-15 Blood Urea Nitrogen 37 H 9-23 mg/dL Creatinine 1.66 H 0.550-1.02 mg/dL Glomerular Filtration Rate Calc 37 >90 mL/min BUN/Creatinine Ratio 22.3 H 10.0-20.0 Serum Glucose 108 H 74-106 mg/dL Calcium Level 9.2 8.7-10.4 mg/dL Total Bilirubin 0.3 0.2-1.0 mg/dL Aspartate Amino Transferase (AST) 11 L 13-40 U/L Alanine Aminotransferase (ALT) 11 7-40 U/L Alkaline Phosphatase 76 46-116 U/L Total Protein 5.8 5.7-8.2 g/dL Albumin 3.7 3.2-4.8 g/dL Plasma/Serum Blood Alcohol < 3.0 <10 mg/dL POC Glucose 161 H 70-106 mg/dl Troponin I High Sensitivity 3 L </=34 ng/L Triglycerides Level 70 < 150 mg/dL Cholesterol Level 155 < 200 mg/dL LDL Cholesterol 83 < 100 mg/dL HDL Cholesterol 58 40-59 mg/dL Microbiology Date/Time Source Procedure Growth Status 11/28/24 20:40 Nose MRSA Screen - Final Complete Assessment Syncope in the setting of hypoglycemic shock Supratherapeutic insulin use Dyslipidemia Obesity Plan/Recommendation (Dr. Biswas) The patient presents with syncope and collapse in the setting of hypoglycemic shock. Admits to overuse of routine insulin from 3 units to 5 units as she was going to eat out of home. Presented with hypoglycemia and hypovolemia which have resolved. Denies any cardiac symptoms. Suspected polypharmacy as the culprit of persistent dizziness. The patient is on Lantus Solostar, Humalog Kwipen, insulin Lispro, Jardiance, and metformin. Advised to be cautious with antidiabetic medications. There is no further cardiac workup indicated at this time. Rest of work-up per primary care team. Thank you for allowing us to participate in this patient's care. Please call if you have any questions or concerns. This medical document was created using an electronic medical record system with voice recognition software and computerized dictation system. Although this document has been carefully reviewed, there might still be some phonetic and typographical errors. Occasional wrong-word or ``sound-alike substitutions may have occurred due to the inherent limitations of voice recognition software. These areas are purely typographical due to imperfections of the software programs and do not reflect any compromise in the patient's medical care. Please read the chart carefully and recognize, using context, where these substitutions have occurred. Plan discussed with: Patient, Other NYHA Physical activity limitations: NA Date of Service: November 29, 2024 Billing Provider: BARRETT PRAKASH Cardiology Common Codes: [id number] INP/OBS CARE (High) BARRETT PRAKASH November 29, 2024 14:17
[2024-11-29] MEDS: ATORVASTATIN 20 MG TAB PO SCH (21:39)
--- NOTE | 2024-11-30 00:08 | DVHINCON2 ---
Date of service: November 29, 2024 Referring Physician Gumaro Reason for Consultation Syncope,Hypotension History of Present Illness This is a 49 year old female with a PMH of insulin-dependent diabetes mellitus, dyslipidemia, and obesity who presented to the ED with complaint of syncopal episode. The patient reports she experienced sudden onset of dizziness and a subsequent syncopal event with her friend break in the fall. Upon arrival to the ED patient was found to be hypoglycemic at 44. Patient states she took more than her regular insulin as she was going to eat out. She usually takes 3 units but instead took 5 units. Glucose improved after orange juice. 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 Tr oponin is negative. Chest x-ray showed NAD. CT head shows no intracranial hemorrhage or mass effect. Age-indeterminate infarct of the left basal ganglia. MRI brain shows no evidence of acute infarction, intracranial hemorrhage, mass effect or hydrocephalus. [id number] changes of chronic microvascular ischemic disease. Old lacunar infarct in the left basal ganglia. Carotid D oppler is unremarkable. Patient was admitted to the hospital. I am asked to consult on this patient. Family History: Hypertension G8 MOTHER Allergies: Coded Allergies: NO KNOWN ALLERGIES (Unverified , 11/28/24) Home Meds Reported Medications Empagliflozin (Jardiance) 25 Mg Tab, 1 TAB PO DAILY 11/28/24 Trazodone Hcl (Trazodone Hcl) 100 Mg Tab, 1 TAB PO HS 11/28/24 Insulin Lispro (Humalog Kwikpen) 100 Unit/Ml Inj, 2 UNITS SC QAM 11/28/24 Midodrine Hcl (Midodrine Hcl) 2.5 Mg Tab, 1 TAB PO BID 11/28/24 Insulin Glargine (Lantus Solostar) 100 Unit/Ml Inj, 10 UNITS SC HS 11/28/24 Current Medications Current Medications Medications (Trade) Dose Ordered Sig/Kartik Route PRN Reason Start Time Stop Time Status Last Admin Patient Own Medication 1 tab DAILY PO 11/29/24 10:00 Aspirin 81 mg DAILY PO 11/29/24 10:00 11/29/24 09:22 Atorvastatin Calcium (Lipitor) 40 mg HS PO 11/29/24 22:00 11/29/24 21:39 Review of Systems Constitutional: denies: chills, diaphoresis, fatigue, fever, malaise, sweats, weakness, others EENTM: denies: blurred vision, double vision, ear bleeding, ear discharge, ear drainage, ear pain, ear ringing, eye pain, eye redness, hearing loss, mouth pain, mouth swelling, nasal discharge, nose bleeding, nose congestion, nose pain, photophobia, tearing, throat pain, throat swelling, voice changes, others Respiratory: denies: cough, hemoptysis, orthopnea, SOB at rest, shortness of breath, SOB with excertion, stridor, wheezing, others Cardiovascular: reports: syncope; denies: chest pain, dizzy spells, diaphoresis, Dyspnea on exertion, edema, irregular heart beat, left arm pain, lightheadedness, palpitations, PND, others Gastrointestinal: denies: abdomen distended, abdominal pain, blood streaked bowels, constipated, diarrhea, dysphagia, difficulty swallowing, hematemesis, melena, nausea, poor appetite, poor fluid intake, rectal bleeding, rectal pain, vomiting, others Genitourinary: denies: abnormal vagina bleeding, burning, dyspareunia, dysuria, flank pain, frequency, hematuria, incontinence, pain, , vagina discharge, urgency, others Neurological: denies: dizziness, fainting, headache, left sided numbness, left sided weakness, numbness, paresthesia, pre-existing deficit, right sided numbness, right sided weakness, seizure, speech problems, tingling, tremors, weakness, others Musculoskeletal: reports: others (Right arm pain); denies: back pain, gout, joint pain, joint swelling, muscle pain, muscle stiffness, neck pain Integumetry: denies: bruises, change in color, change in hair/nails, dryness, laceration, lesions, lumps, rash, wounds, others Allergic/Immunocompromised: denies: Difficulty Healing, Frequent Infections, Hives, Itching, others Hematologic/Lymphatic: denies: anemia, blood clots, easy bleeding, easy bruising, swollen glands, others Endocrine: denies: excessive hunger, excessive sweating, excessive thirst, excessive urination, flushing, intolerance to cold, intolerance to heat, unexplained weight gain, unexplained weight loss, others Psychiatric: denies: anxiety, bipolar disorder, depression, hopeless, panic disorder, schizophrenia, sleepless, suicidal, others All Other Systems: Reviewed and Negative Vital Signs Vital Signs Date Time Temp Pulse Resp B/P (MAP) Pulse Ox O2 Delivery O2 Flow Rate FiO2 11/29/24 17:01 97.4 64 18 134/65 (88) 97 97.4 11/29/24 08:00 Room Air* 0 21 Physical Exam GENERAL: Alert and oriented x 3. No acute distress. EYES: PERRL, EOMI. Anicteric. HENT: Moist mucous membranes. LUNGS: Clear to auscultation bilaterally. CARDIOVASCULAR: Regular rate and rhythm. ABDOMEN: Soft, nontender and nondistended. EXTREMITIES: No edema. NEUROLOGIC: No focal neurological deficits. SKIN: Warm, dry. Labs/Diagnostic Data Labs Test 11/29/24 21:01 11/29/24 05:20 11/28/24 14:24 Range/Units POC Glucose 192 H 70-106 mg/dl White Blood Count 7.3 4.4-10.8 10^3/uL Red Blood Count 3.39 L 4.0-5.20 10^6/uL Hemoglobin 9.5 L 12.2-16.2 g/dL Hematocrit 28.3 L 36.0-46.0 % Mean Corpuscular Volume 83.6 80.0-100.0 fL Mean Corpuscular Hemoglobin 27.9 L 28.0-32.0 pg Mean Corpuscular Hemoglobin Concent 33.4 32.0-36.0 g/dL Red Cell Distribution Width 13.9 11.8-14.3 % Platelet Count 204 140-450 10^3/uL Mean Platelet Volume 9.9 6.9-10.8 fL Neutrophils (%) (Auto) 54.7 37.0-80.0 % Lymphocytes (%) (Auto) 32.2 10.0-50.0 % Monocytes (%) (Auto) 8.5 0.0-12.0 % Eosinophils (%) (Auto) 4.0 0.0-7.0 % Basophils (%) (Auto) 0.6 0.0-2.0 % Neutrophils # (Auto) 4.0 1.6-8.6 10 ^3/uL Lymphocytes # (Auto) 2.4 0.4-5.4 10 ^3/uL Monocytes # (Auto) 0.6 0-1.3 10 ^3/uL Eosinophils # (Auto) 0.3 0-0.8 10 ^3/uL Basophils # (Auto) 0 0-0.2 10 ^3/uL Nucleated Red Blood Cells 0.0 % Sodium Level 144 136-145 mmol/L Potassium Level 5.0 3.5-5.1 mmol/L Chloride Level 111 H 98-107 mmol/L Carbon Dioxide Level 28 20-31 mmol/L Anion Gap 5 5-15 Blood Urea Nitrogen 37 H 9-23 mg/dL Creatinine 1.66 H 0.550-1.02 mg/dL Glomerular Filtration Rate Calc 37 >90 mL/min BUN/Creatinine Ratio 22.3 H 10.0-20.0 Serum Glucose 108 H 74-106 mg/dL Hemoglobin A1c 7.5 H <5.7 % A1C Calcium Level 9.2 8.7-10.4 mg/dL Magnesium Level 2.3 1.6-2.6 mg/dL Total Bilirubin 0.3 0.2-1.0 mg/dL Aspartate Amino Transferase (AST) 11 L 13-40 U/L Alanine Aminotransferase (ALT) 11 7-40 U/L Alkaline Phosphatase 76 46-116 U/L Total Protein 5.8 5.7-8.2 g/dL Albumin 3.7 3.2-4.8 g/dL Thyroid Stimulating Hormone (TSH) 0.84 0.55-4.78 uIU/mL Plasma/Serum Blood Alcohol < 3.0 <10 mg/dL Troponin I High Sensitivity 3 L </=34 ng/L Triglycerides Level 70 < 150 mg/dL Cholesterol Level 155 < 200 mg/dL LDL Cholesterol 83 < 100 mg/dL HDL Cholesterol 58 40-59 mg/dL Microbiology Date/Time Source Procedure Growth Status 11/28/24 20:40 Nose MRSA Screen - Final Complete Assessment Syncope and collapse. Hypoglycemia. Hypotension. Diabetes. Hyperlipidemia. Subtherapeutic insulin use. Dyslipidemia. Obesity. Plan/Recommendation I agree with your ongoing assessment and care of plan. Telemetry reviewed. Echocardiogram. Morphine and [place] for pain management. Aspirin, Lipitor. Clonidine. Additional plan as per the hospital course. A total of 45 minutes was spent reviewing the patient record, examining the patient, making a diagnostic and therapeutic plan, discussing this plan with medical personnel, following up on diagnostic studies and following the patient for clinical stability excluding any and all procedures. At least 50% of this time was spent in direct, [id number] contact. Plan discussed with: Patient SNEHAL BECKER MD November 29, 2024 22:25
--- NOTE | 2024-11-30 00:28 | DVHEEG2 ---
Neurology EEG Procedural Note Procedural Note EXAM DATE: 11/29/2024 REFERRING DOCTOR: Dr. Singh TECHNIQUE: Eighteen channels of EEG, 2 channels of EOG, and 1 channel of EKG were recorded using the International 10/20 system. CLINICAL DATA: The patient was referred for an EEG evaluation for the evidence of seizure disorder. MEDICATIONS: See the chart BACKGROUND ACTIVITY: While the patient was awake, the background activity consisted of well regulated 9 Hz rhythmic waveforms, symmetrically distributed over both posterior quadrants and was reactive to eye opening. ACTIVATION: Hyperventilation: Not done Photic Stimulation: Not done Sleep: Not seen IMPRESSION: This is a normal EEG. No focal, lateralized, or epileptiform feat ures are noted. If clinically indicated to rule out a seizure disorder, recommend repeat EEG with sleep deprivation. The EKG channel showed a regular heart rate of 66/min[place] [address]. SABINA SINGH MD November 30, 2024 00:28
[2024-11-30 01:00] VITALS: BP 137/52; PULSE 67; RESP 18; TEMP 98.7; O2SAT 98
[2024-11-30 05:00] VITALS: BP_SYST 115; BP_SYST 138; BP_SYST 149; BP_DIAS 55; BP_DIAS 58; BP_DIAS 63; PULSE 67; PULSE 70; RESP 18; TEMP 97.8; O2SAT 98; O2SAT 99
[2024-11-30 06:19] LABS: Urine Bacteria None Seen /hpf (None Seen)
[2024-11-30 06:30] LABS: Urine Blood Negative /uL (Negative); Urine Clarity Clear (Clear); Urine Color Light-Yellow (Yellow); Urine Protein, UAD Negative (Negative); Urine Specific Gravity 1.022 (1.001-1.035); Urine Squamous Epithelial Cell FEW /hpf (<5); Urine Urobilinogen Normal (Negative); Urine WBC 1 /HPF (0-5)
[2024-11-30 06:54] LABS: Amphetamine Screen, Urine Neg (NEGATIVE); Barbiturate Scree,Urine Neg (NEGATIVE); Benzodiazephine Screen, Urine Neg (NEGATIVE); Cannabinoid Screen, Urine Neg (NEGATIVE); Cocaine Screen, Urine Neg (NEGATIVE); Opiate Scree,Urine Neg (NEGATIVE); Phencyclidine Screen, Urine Neg (NEGATIVE)
[2024-11-30 08:00] VITALS: PULSE 70; PULSE 76; RESP 16; O2SAT 99
[2024-11-30 09:00] VITALS: BP 114/65; PULSE 70; RESP 16; TEMP 97.9; O2SAT 99
--- NOTE | 2024-11-30 09:22 | DVHPN2 ---
Reviewed: Care Plan, H&P, Labs, Medications, Previous Orders, Radiology Changes from previous H/P or p: No Changes Eyes: No Pain, No Vision change, No Conjunctivae inflammation, No Eyelid inflammation, No Other, No Redness ENT: No Ear pain, No Ear discharge, No Nose pain, No Nose discharge, No Nose congestion, No Mouth pain, No Mouth swelling, No Throat pain, No Throat swelling, No Other Cardiovascular: No Chest Pain, No Palpitations, No Orthopnea, No Paroxysmal Noc. Dyspnea, No Edema, No Lt Headedness, No Other Respiratory: No Cough, No Dry, No Shortness of breath, No SOB with excertion, No Wheezing, No Hemoptysis, No Pleuritic Pain, No Sputum, No Other Genitourinary: No Dysuria, No Frequency, No Incontinence, No Hematuria, No Retention, No Other Musculoskeletal: No other, No neck pain, No shoulder pain, No arm pain, No back pain, No hand pain, No leg pain, No foot pain Skin: No Rash, No Lesions, No Jaundice, No Bruising, No Other Objective Vitals Vital Signs Date Time Temp Pulse Resp B/P (MAP) Pulse Ox O2 Delivery O2 Flow Rate FiO2 11/30/24 05:00 97.8 70 18 115/58 (77) 99 97.8 11/29/24 20:00 Room Air* 0 21 Intake/Output Intake and Output 11/30/24 07:00 Intake Total 1000 ml Balance 1000 ml Intake Oral 1000 ml # Voids 4 Medications Current Medications Medications Dose Ordered Sig/Kartik Route Start Time Stop Time Status Last Admin Dose Admin Sodium Chloride 10 ml Q8HR IV 11/28/24 22:00 11/30/24 06:17 10 ML Acetaminophen/ Hydrocodone Bitart 1 tab Q4HP PRN PO 11/28/24 16:45 Ondansetron HCl 4 mg Q4HP PRN IV 11/28/24 16:45 Docusate Sodium 100 mg BIDPRN PRN PO 11/28/24 16:45 Acetaminophen 650 mg Q6HP PRN PO 11/28/24 16:45 Nitroglycerin 0.4 mg Q5MINP PRN SL 11/28/24 16:45 Morphine Sulfate 2 mg Q30M PRN IV 11/28/24 16:45 Diagnostic Test (Pha) 1 strip ACHS 11/28/24 17:00 11/30/24 06:18 1 STRIP Insulin Human Regular ACHS SC 11/28/24 17:00 11/29/24 21:44 3 UNITS Dextrose 50 ml UD PRN IV 11/28/24 16:45 Patient Own Medication 1 tab DAILY PO 11/29/24 10:00 Insulin Glargine 10 units HS SC 11/28/24 22:00 11/29/24 21:44 10 UNITS Patient Own Medication 1 tab BID PO 11/28/24 22:00 Trazodone HCl 100 mg HS PO 11/28/24 22:00 11/29/24 21:40 100 MG Clonidine HCl 0.1 mg Q6HP PRN PO 11/28/24 20:30 11/28/24 22:33 0.1 MG Aspirin 81 mg DAILY PO 11/29/24 10:00 11/29/24 09:22 81 MG Atorvastatin Calcium 40 mg HS PO 11/29/24 22:00 11/29/24 21:39 40 MG Laboratory Results Laboratory Tests 11/29/24 05:20 Urinalysis Test 11/30/24 06:05 Urine Color Light-yellow (Yellow) Urine Clarity Clear (Clear) Urine pH 5.0 (5.0-9.0) Urine Specific [place] 1.022 (1.001-1.035) Urine Protein Negative (Negative) Urine Ketones Negative (Negative) Urine Blood Negative /uL (Negative) Urine Nitrite Negative (Negative) Urine Bilirubin Negative (Negative) Urine Urobilinogen Normal mg/dL (Negative) Urine Leukocyte Esterase Negative /uL (Negative) Urine RBC 1 /hpf (0 - 4) Urine Microscopic WBC 1 /HPF (0-5) Urine Squamous Epithelial Cells Few /hpf (<5) Urine Bacteria None seen /hpf (None Seen) Urine Glucose 4+ mg/dL (Normal) H Microbiology Microbiology Date/Time Source Procedure Growth Status 11/28/24 20:40 Nose MRSA Screen - Final Complete Labs and/or images reviewed: Labs reviewed by me, Image(s) reviewed by me Assessment/Plan Assessment/Plan Syncope with acute hypotension blood pressure 77/41 rule out cardiac etiology: Echocardiogram cardiology consult for Dr. Davis appreciated, echocardiogram result pending Syncope due to hypovolemia and hypoglycemia due to overuse of insulin Neurology consult for Dr. Crook appreciated EEG normal Chest x-ray negative carotid ultrasound negative CT head negative MRI brain negative Urine drug screen and blood alcohol level ordered Diabetes Acute hypoglycemia blood sugar 45 Hypercholesterolemia Time spent 50 minutes Plan discussed with: Patient My Orders Orders - RONEN CAMPOS MD Procedure Category Date Status Time * Cardiology Consult CONS 11/29/24 Transmitted 13:07 * Neurology Consult CONS 11/29/24 Transmitted 13:07 Communication Order ORDERS 11/29/24 Transmitted 13:10 Date of Service: November 30, 2024 Billing Provider: RONEN CAMPOS MD Common Visit Codes: [id number] INP/OBS CARE(HIGH) RONEN CAMPOS MD November 30, 2024 09:22
--- NOTE | 2024-11-30 09:26 | DVHDS2 ---
Discharge Summary Date of Admission November 28, 2024 at 16:39 Date of Discharge: November 30, 2024 Admitting Diagnosis Syncope Wounds: None Labs/Diagnostic Data: Laboratory Results Test 11/30/24 06:05 11/30/24 06:03 11/29/24 05:20 11/28/24 14:24 Urine Color Light-yellow (Yellow) Urine Clarity Clear (Clear) Urine pH 5.0 (5.0-9.0) Urine Specific [place] 1.022 (1.001-1.035) Urine Protein Negative (Negative) Urine Ketones Negative (Negative) Urine Blood Negative /uL (Negative) Urine Nitrite Negative (Negative) Urine Bilirubin Negative (Negative) Urine Urobilinogen Normal mg/dL (Negative) Urine Leukocyte Esterase Negative /uL (Negative) Urine RBC 1 /hpf (0 - 4) Urine Microscopic WBC 1 /HPF (0-5) Urine Squamous Epithelial Cells Few /hpf (<5) Urine Bacteria None seen /hpf (None Seen) Urine Glucose 4+ mg/dL (Normal) Urine Opiates Screen Neg (NEGATIVE) Urine Fentanyl Screen Neg (NEGATIVE) Urine Barbiturates Screen Neg (NEGATIVE) Urine Phencyclidine Screen Neg (NEGATIVE) Urine Amphetamines Screen Neg (NEGATIVE) Urine Benzodiazepines Screen Neg (NEGATIVE) Urine Cocaine Screen Neg (NEGATIVE) Urine Cannabinoids Screen Neg (NEGATIVE) POC Glucose 125 mg/dl (70-106) White Blood Count 7.3 10^3/uL (4.4-10.8) Red Blood Count 3.39 10^6/uL (4.0-5.20) Hemoglobin 9.5 g/dL (12.2-16.2) Hematocrit 28.3 % (36.0-46.0) Mean Corpuscular Volume 83.6 fL (80.0-100.0) Mean Corpuscular Hemoglobin 27.9 pg (28.0-32.0) Mean Corpuscular Hemoglobin Concent 33.4 g/dL (32.0-36.0) Red Cell Distribution Width 13.9 % (11.8-14.3) Platelet Count 204 10^3/uL (140-450) Mean Platelet Volume 9.9 fL (6.9-10.8) Neutrophils (%) (Auto) 54.7 % (37.0-80.0) Lymphocytes (%) (Auto) 32.2 % (10.0-50.0) Monocytes (%) (Auto) 8.5 % (0.0-12.0) Eosinophils (%) (Auto) 4.0 % (0.0-7.0) Basophils (%) (Auto) 0.6 % (0.0-2.0) Neutrophils # (Auto) 4.0 10 ^3/uL (1.6-8.6) Lymphocytes # (Auto) 2.4 10 ^3/uL (0.4-5.4) Monocytes # (Auto) 0.6 10 ^3/uL (0-1.3) Eosinophils # (Auto) 0.3 10 ^3/uL (0-0.8) Basophils # (Auto) 0 10 ^3/uL (0-0.2) Nucleated Red Blood Cells 0.0 % Sodium Level 144 mmol/L (136-145) Potassium Level 5.0 mmol/L (3.5-5.1) Chloride Level 111 mmol/L (98-107) Carbon Dioxide Level 28 mmol/L (20-31) Anion Gap 5 (5-15) Blood Urea Nitrogen 37 mg/dL (9-23) Creatinine 1.66 mg/dL (0.550-1.02) Glomerular Filtration Rate Calc 37 mL/min (>90) BUN/Creatinine Ratio 22.3 (10.0-20.0) Serum Glucose 108 mg/dL (74-106) Hemoglobin A1c 7.5 % A1C (<5.7) Calcium Level 9.2 mg/dL (8.7-10.4) Magnesium Level 2.3 mg/dL (1.6-2.6) Total Bilirubin 0.3 mg/dL (0.2-1.0) Aspartate Amino Transferase (AST) 11 U/L (13-40) Alanine Aminotransferase (ALT) 11 U/L (7-40) Alkaline Phosphatase 76 U/L (46-116) Total Protein 5.8 g/dL (5.7-8.2) Albumin 3.7 g/dL (3.2-4.8) Thyroid Stimulating Hormone (TSH) 0.84 uIU/mL (0.55-4.78) Plasma/Serum Blood Alcohol < 3.0 mg/dL (<10) Troponin I High Sensitivity 3 ng/L (</=34) Triglycerides Level 70 mg/dL (< 150) Cholesterol Level 155 mg/dL (< 200) LDL Cholesterol 83 mg/dL (< 100) HDL Cholesterol 58 mg/dL (40-59) Other Laboratory Tests 11/29/24 05:20 Brief Hx & Hospital Course: 49-year-old female with a history of hypertension diabetes cholesterol burden for syncopal episode. Blood pressure was 77/41 and glucose 45 at the scene. Patient took too much of insulin. Patient was given IV fluids and syncope resolved CT head negative EEG negative carotid ultrasound negative . Echocardiogram normal. Cardiology and Neurology cleared for discharge At the time of discharge patient is alert awake with stable vital signs and moving around in the room Consults/Reason for consult Cardiology Neurology Operations or Procedures CT head EEG Carotid ultrasound Echocardiogram Condition at Discharge: Fair Final Diagnosis/Problems List Syncope secondary to hypoglycemia Syncope due to hypovolemia and hypoglycemia due to overuse of insulin Neurology consult for Dr. Crook appreciated EEG normal Chest x-ray negative carotid ultrasound negative CT head negative MRI brain negative Urine drug screen and blood alcohol level ordered Diabetes Acute hypoglycemia blood sugar 45 Hypercholesterolemia Discharge Disposition: Home Discharge Instruct/Medications Diet: Consistent carbohydrate Activity: Light activity Medications: Check your blood sugars 3 times a day and take insulin appropriately 35 (Time taken for discharge summary 35 minute) Discharge Statement: "Patient was advised to return to the ER or call 911 if any headaches, dizziness, shortness of breath, chest pain, abdominal pain, bleeding, fevers, or worsening of medical condition. Patient was counseled about treatment plan, medications, possible side effects, patientverbalized understanding. All questions were answered to the best of my ability. This discharge took greater then 30 minutes in planning, reviewing documentation, counseling the patient, and discussing with other team members." ASSESSMENT ASSESSMENT Hospital Course Uneventful Assessment Syncope secondary to hypoglycemia Syncope due to hypovolemia and hypoglycemia due to overuse of insulin Neurology consult for Dr. Crook appreciated EEG normal Chest x-ray negative carotid ultrasound negative CT head negative MRI brain negative Urine drug screen and blood alcohol level ordered Diabetes Acute hypoglycemia blood sugar 45 Hypercholesterolemia Date of Service: November 30, 2024 Billing Provider: RONEN CAMPOS MD Common Visit Codes: [id number]/OBS DISCH DAY >30min RONEN CAMPOS MD November 30, 2024 09:25
[2024-11-30 13:00] VITALS: BP 145/66; PULSE 67; RESP 16; TEMP 98.2; O2SAT 96
--- NOTE | 2024-11-30 19:17 | DVHPN2 ---
Progress Note - Dictate Date Seen: November 30, 2024 Medical Necessity Reason Pt with a Central, PICC or Fol: No Subjective Patient was seen and evaluated in follow up. No overnight events. Patient complains of generalized pain. BS are WNL. Echocardiogram is pending to evaluate cardiac function. Telemetry reviewed. vital signs Vital Sign Date Time Temp Pulse Resp B/P (MAP) Pulse Ox O2 Delivery O2 Flow Rate FiO2 11/30/24 09:00 97.9 70 16 114/65 (81) 99 97.9 11/30/24 08:00 Room Air* 0 21 Total Intake and Output 11/29/24 11/29/24 11/30/24 15:00 23:00 07:00 Intake Total 800 ml 200 ml Balance 800 ml 200 ml medications Current Medications Medications Dose Ordered Sig/Kartik Route Start Time Stop Time Status Last Admin Dose Admin Sodium Chloride 10 ml Q8HR IV 11/28/24 22:00 11/30/24 06:17 10 ML Acetaminophen/ Hydrocodone Bitart 1 tab Q4HP PRN PO 11/28/24 16:45 Ondansetron HCl 4 mg Q4HP PRN IV 11/28/24 16:45 Docusate Sodium 100 mg BIDPRN PRN PO 11/28/24 16:45 Acetaminophen 650 mg Q6HP PRN PO 11/28/24 16:45 Nitroglycerin 0.4 mg Q5MINP PRN SL 11/28/24 16:45 Morphine Sulfate 2 mg Q30M PRN IV 11/28/24 16:45 Diagnostic Test (Pha) 1 strip ACHS 11/28/24 17:00 11/30/24 06:18 1 STRIP Insulin Human Regular ACHS SC 11/28/24 17:00 11/29/24 21:44 3 UNITS Dextrose 50 ml UD PRN IV 11/28/24 16:45 Patient Own Medication 1 tab DAILY PO 11/29/24 10:00 Insulin Glargine 10 units HS SC 11/28/24 22:00 11/29/24 21:44 10 UNITS Patient Own Medication 1 tab BID PO 11/28/24 22:00 Trazodone HCl 100 mg HS PO 11/28/24 22:00 11/29/24 21:40 100 MG Clonidine HCl 0.1 mg Q6HP PRN PO 11/28/24 20:30 11/28/24 22:33 0.1 MG Aspirin 81 mg DAILY PO 11/29/24 10:00 11/29/24 09:22 81 MG Atorvastatin Calcium 40 mg HS PO 11/29/24 22:00 11/29/24 21:39 40 MG objective GENERAL: Alert and oriented x 3. No acute distress. EYES: PERRL, EOMI. Anicteric. HENT: Moist mucous membranes. LUNGS: Clear to auscultation bilaterally. CARDIOVASCULAR: Regular rate and rhythm. ABDOMEN: Soft, nontender and nondistended. EXTREMITIES: No edema. NEUROLOGIC: No focal neurological deficits. SKIN: Warm, dry. laboratory and microbiology Laboratory Tests 11/29/24 05:20 Test 11/29/24 05:20 Range/Units Serum Glucose 108 H 74-106 mg/dL Problem List Syncope and collapse. Hypoglycemia. Hypotension. Diabetes. Hyperlipidemia. Subtherapeutic insulin use. Dyslipidemia. Obesity. Assessment/Plan Continued all current supportive medical care. Echocardiogram. Morphine and [place] for pain management. Aspirin, Lipitor. Clonidine. Additional plan as per the hospital course. Plan discussed with: Patient SNEHAL BECKER MD November 30, 2024 11:55
== END 2024-11-30 16:35 | disposition home or self-care (01) | DRG 812 ==
LOC: ER 11:03 → OVERFLOW 16:39 → TELE-EAST 19:10
PROVIDERS: ADMIT Family Medicine; ATTEND Family Medicine
DX: T38.3X1A Poisoning by insulin and oral hypoglycemic [antidiabetic] drugs, accidental (unintentional), initial encounter (principal); R57.8 Other shock; N17.0 Acute kidney failure with tubular necrosis; E11.649 Type 2 diabetes mellitus with hypoglycemia without coma; E86.1 Hypovolemia; E66.9 Obesity, unspecified; I10 Essential (primary) hypertension; G40.909 Epilepsy, unspecified, not intractable, without status epilepticus; E78.00 Pure hypercholesterolemia, unspecified; Z86.73 Personal history of transient ischemic attack (TIA), and cerebral infarction without residual deficits; Z82.49 Family history of ischemic heart disease and other diseases of the circulatory system; Z79.899 Other long term (current) drug therapy; Z79.82 Long term (current) use of aspirin; Z79.4 Long term (current) use of insulin; Z68.29 Body mass index [BMI] 29.0-29.9, adult; Y92.89 Other specified places as the place of occurrence of the external cause; E86.0 Dehydration
CPT/HCPCS: 36415; 70450; 70551; 71045; 80048; 80053; 80061; 80307; 80320; 81001; 82962; 83036; 83735; 84443; 84484; 85025; 87081; 93005; 93306; 93886; 95819; 99291; G0378; J1815

== ENCOUNTER 2025-07-04 12:07 | Inpatient (IN) | payer MEDICAID ==
[~2025-07-04] VITALS: Ht 162.6 cm; Wt 72.0 kg
[~2025-07-04 12:07] MED LIST: EMPA1TAB3 PO; INSU100I4 SC; INSUINJ37 SC; MIDO2.5T3 PO; TRAZ-228 PO
--- NOTE | 2025-07-04 12:55 | ED.PDOC ---
HPI (NEURO) HPI Comments 50y F who presents to the ED for chief complaint of dizziness. Pt states she woke up this AM at 0600 and states since, she has been having dizziness. Pt states her symptoms persisted and she got worried because in the past she had CVA and had dizziness episode to CVA and got worried and came to the urgent care for further evaluation. staff noted pt had low BP of 57/38 and EMS was called to the scene. EMS arrived on scene and noted had low BP but otherwise was alert and oriented and pt was started on IV fluids and brought to the ED. Pt now in the ED, states she is still having dizziness and states she started to have nausea and low back pain. EMS notes pt does have history of low blood pressure. Pt otherwise denies any other symptoms at this time. Chief Complaint: Dizziness Time Seen by MD: 12:49 Primary Care Provider: UNKNOWN Reviewed Notes: Nurses Notes, Medications, Allergies Information Source: Patient, Emergency Med Personnel Mode of Arrival: EMS Brought in by: EMS Severity: Moderate Dizziness/Weakness Severity: Unable to do activities Headache Severity: None Timing: Hours Duration: Since onset Prehospital treatment: IVF Weakness Location: Generalized Onset: At rest Circumstances: Spontaneous Symptoms: Weakness History of: CVA, DM Modifying factors: Nothing Associated Signs and Symptoms: Nausea, Weakness Past Medical History PAST MEDICAL HISTORY: CKF, DM, High Lipids, HTN, Hypotension Surgical History: Denies all surgeries OPTICAL MECHANIC History: No Pertinent OPTICAL MECHANIC History Family History Family History: Family hx of HTN Social History Smoker: Non-Smoker Alcohol: Denies ETOH Use Drugs: Denies Drug Use Lives In: Home Constitutional: denies: chills, diaphoresis, fatigue, fever, malaise, sweats, weakness, others EENTM: denies: blurred vision, double vision, ear bleeding, ear discharge, ear drainage, ear pain, ear ringing, eye pain, eye redness, hearing loss, mouth pain, mouth swelling, nasal discharge, nose bleeding, nose congestion, nose pain, photophobia, tearing, throat pain, throat swelling, voice changes, others Respiratory: denies: cough, hemoptysis, orthopnea, SOB at rest, shortness of breath, SOB with excertion, stridor, wheezing, others Cardiovascular: denies: chest pain, dizzy spells, diaphoresis, Dyspnea on exertion, edema, irregular heart beat, left arm pain, lightheadedness, palpitations, PND, syncope, others Gastrointestinal: reports: nausea; denies: abdomen distended, abdominal pain, blood streaked bowels, constipated, diarrhea, dysphagia, difficulty swallowing, hematemesis, melena, poor appetite, poor fluid intake, rectal bleeding, rectal pain, vomiting, others Genitourinary: denies: abnormal vagina bleeding, burning, dyspareunia, dysuria, flank pain, frequency, hematuria, incontinence, pain, , vagina discharge, urgency, others Neurological: reports: dizziness; denies: fainting, headache, left sided numbness, left sided weakness, numbness, paresthesia, pre-existing deficit, right sided numbness, right sided weakness, seizure, speech problems, tingling, tremors, weakness, others Musculoskeletal: reports: back pain; denies: gout, joint pain, joint swelling, muscle pain, muscle stiffness, neck pain, others Integumetry: denies: bruises, change in color, change in hair/nails, dryness, laceration, lesions, lumps, rash, wounds, others Allergic/Immunocompromised: denies: Difficulty Healing, Frequent Infections, Hives, Itching, others Hematologic/Lymphatic: denies: anemia, blood clots, easy bleeding, easy bru ising, swollen glands, others Endocrine: denies: excessive hunger, excessive sweating, excessive thirst, e xcessive urination, flushing, intolerance to cold, intolerance to heat, unexplained weight gain, unexplained weight loss, others Psychiatric: denies: anxiety, bipolar disorder, depression, hopeless, panic disorder, schizophrenia, sleepless, suicidal, others All Other Systems: Reviewed and Negative Physical Exam General Appearance: Moderate Distress HEENT: Normal ENT Inspection, Pharynx Normal, TMs Normal Neck: Full Range of Motion, Non-Tender, Normal, Normal Inspection Respiratory: Chest Non-Tender, Lungs Clear, No Accessory Muscle Use, No Respiratory Distress, Normal Breath Sounds Cardiovascular: No Edema, No JVD, No Murmur, No Gallop, Normal Peripheral Pulses, Regular Rate/Rhythm Breast Exam: Deferred Gastrointestinal: No Organomegaly, Non Tender, No Pulsatile Mass, Normal Bowel Sounds, Soft Genitalia: Deferred Pelvic: Deferred Rectal: Deferred Extremities: No calf tenderness, Normal capillary refill, Normal inspection, Normal range of motion, Non-tender, No pedal edema Musculoskeletal : Apperance: Normal Neurologic: Alert, administrative associate II-XII nml as Tested, No Motor Deficits, Normal Affect, Normal Mood, No Sensory Deficits Cerebellar Function: Normal Reflexes: Normal Skin: Dry, Normal Color, Warm Lymphatic: No Adenopathy EKG EKG : Pulse Rate (adult): 72 [place]: LAD Cardiac Rhythm: NSR Block: None Hypertrophy: None ST: Normal Was a procedure done? Was a procedure done?: No Differential Diagnosis (SZ) Seizure: N/A General Weakness: Anemia, Dehydration, Electrolyte imbalance, Encephalopathy, Hypoglycemia, Hypotension, TIA, Vertigo: central, Vertigo: peripheral, Other (uti) X-Ray, Labs, Meds, VS Vital Signs Date Time Temp Pulse Resp B/P (MAP) Pulse Ox O2 Delivery O2 Flow Rate FiO2 07/04/25 14:12 97.4 67 16 154/71 (98) 97 97.4 07/04/25 12:55 72 07/04/25 12:30 98.0 75 16 57/38 100 98.0 07/04/25 12:25 72 Lab Test 07/04/25 14:17 07/04/25 12:47 Range/Units Urine Color Light-yellow Yellow Urine Clarity Clear Clear Urine pH 5.0 5.0-9.0 Urine Specific [place] 1.021 1.001-1.035 Urine Protein Trace H Negative Urine Ketones Negative Negative Urine Blood Negative Negative /uL Urine Nitrite Negative Negative Urine Bilirubin Negative Negative Urine Urobilinogen Normal Negative mg/dL Urine Leukocyte Esterase Negative Negative /uL Urine RBC <1 0 - 4 /hpf Urine Microscopic WBC 3 0-5 /HPF Urine Squamous Epithelial Cells Few <5 /hpf Urine Bacteria Few H None Seen /hpf Urine Hyaline Casts Few 0 - 2 /lpf Urine Glucose 4+ H Normal mg/dL White Blood Count 6.0 4.4-10.8 10^3/uL Red Blood Count 4.50 4.0-5.20 10^6/uL Hemoglobin 12.2 12.2-16.2 g/dL Hematocrit 37.8 36.0-46.0 % Mean Corpuscular Volume 84.0 80.0-100.0 fL Mean Corpuscular Hemoglobin 27.2 L 28.0-32.0 pg Mean Corpuscular Hemoglobin Concent 32.4 32.0-36.0 g/dL Red Cell Distribution Width 14.6 H 11.8-14.3 % Platelet Count 206 140-450 10^3/uL Mean Platelet Volume 10.7 6.9-10.8 fL Neutrophils (%) (Auto) 61.7 37.0-80.0 % Lymphocytes (%) (Auto) 26.0 10.0-50.0 % Monocytes (%) (Auto) 8.4 0.0-12.0 % Eosinophils (%) (Auto) 2.9 0.0-7.0 % Basophils (%) (Auto) 1.0 0.0-2.0 % Neutrophils # (Auto) 3.7 1.6-8.6 10 ^3/uL Lymphocytes # (Auto) 1.6 0.4-5.4 10 ^3/uL Monocytes # (Auto) 0.5 0-1.3 10 ^3/uL Eosinophils # (Auto) 0.2 0-0.8 10 ^3/uL Basophils # (Auto) 0.1 0-0.2 10 ^3/uL Nucleated Red Blood Cells 0.1 % Sodium Level 143 136-145 mmol/L Potassium Level 4.6 3.5-5.1 mmol/L Chloride Level 109 H 98-107 mmol/L Carbon Dioxide Level 25 20-31 mmol/L Anion Gap 9 5-15 Blood Urea Nitrogen 35 H 9-23 mg/dL Creatinine 2.25 H 0.550-1.02 mg/dL Glomerular Filtration Rate Calc 26 >90 mL/min BUN/Creatinine Ratio 15.6 10.0-20.0 Serum Glucose 148 H 74-106 mg/dL Calcium Level 9.2 8.7-10.4 mg/dL PROCEDURE(s): HWOCT - HEAD WITHOUT CONTRAST IMPRESSION: 1. No CT evidence of acute intracranial abnormality. 2. Nonacute findings as described above. IV Hep-Lock was established. The patient was initially hypotensive. The urine test was 4+ glucose The BUN is 35 and the creatinine is 2.25 The rest of the CBC is within normal limits The patient is being admitted at this time The patient is autonomic dysfunction Images Reviewed?: Images reviewed and evaluated by me Time of 1ST Reevaluation: 13:20 Reevaluation 1ST: Unchanged Patient Education/Counseling: Diagnosis, Treatment, Prognosis Family Education/Counseling: No Family Present Departure 1 Departure Time of Disposition: 16:39 Impression: Primary Impression: Autonomic dysfunction Disposition: 09 ADMITTED INPATIENT Admit to: Tele Condition: Fair Critical Care Note Critical Care Time?: Yes (45 min-critical care time only) Stability Stability form required: Yes Unstable for transfer: Telemetry monitoring (Telemetry monitoring required), ED Physician Assesment (Clinical assesment) Heart Score Heart Score: Heart Score Response (Comments) Value History N/A 0 EKG N/A 0 Age N/A 0 Risk Factors N/A 0 Troponin N/A 0 Total 0 I personally scribed for KUN GREEN MD ([email or web address]) on 07/04/25 at 12:55. Electronically submitted by Ramin Moore ([email or web address]). I personally scribed for KUN GREEN MD ([email or web address]) on 07/04/25 at 13:09. Electronically submitted by Ramin Moore ([email or web address]). I personally scribed for KUN GREEN MD ([email or web address]) on 07/04/25 at 13:10. Electronically submitted by Ramin Moore ([email or web address]). I personally scribed for KUN GREEN MD ([email or web address]) on 07/04/25 at 13:11. Electronically submitted by Ramin Moore ([email or web address]). KUN GREEN MD Jul 04, 2025 12:55
[2025-07-04 13:03] LABS: Hematocrit 37.8 % (36.0-46.0); Hemoglobin 12.2 g/dL (12.2-16.2); Mean Corpuscular Hemoglobin 27.2 pg (28.0-32.0); Mean Corpuscular Volume 84.0 fL (80.0-100.0); Nucleated Red Blood Cells % 0.1 %
--- NOTE | 2025-07-04 13:05 | DVH ---
CLINICAL INFORMATION: Dizziness. Acute loss of consciousness. TECHNIQUE: Axial imaging was obtained through the brain without contrast. Coronal and sagittal reformatted images were obtained, reviewed, and stored. Images were reviewed in brain and bone windows. All CT scans at this medical facility are performed using dose modulation techniques as appropriate to a performed exam including the following: Automated exposure control was utilized; adjustment of the MA and/or KV according to patient size; and use of iterative reconstruction technique. CTDIvol = 51.87 mGy DLP = 917.38 mGy-cm COMPARISON: MRI BRAIN HEAD WO CONTRAST on DOS: 11/28/24, CT HEAD WITHOUT CONTRAST on DOS: 11/28/24 FINDINGS: There is no acute intracranial hemorrhage. No mass effect or midline shift. Small lucency in the left basal ganglia, may be due to chronic lacunar infarct or prominent perivascular space. The ventricles and sulci are within normal limits in size for age. Basal cisterns are patent. The calvarium is unremarkable. Paranasal sinuses and mastoid air cells are clear. IMPRESSION: 1. No CT evidence of acute intracranial abnormality. 2. Nonacute findings as described above.
[2025-07-04 13:12] LABS: Potassium 4.6 mmol/L (3.5-5.1); Sodium 143 mmol/L (136-145)
[2025-07-04 13:13] LABS: Anion Gap 9 (5-15); Calcium 9.2 mg/dL (8.7-10.4); Carbon Dioxide 25 mmol/L (20-31); Chloride 109 mmol/L (98-107)
[2025-07-04 13:18] LABS: BUN/Creatinine Ratio 15.6 (10.0-20.0); Blood Urea Nitrogen 35 mg/dL (9-23); Glucose 148 mg/dL (74-106)
[2025-07-04 14:46] LABS: Urine Protein, UAD TRACE (Negative)
--- NOTE | 2025-07-04 15:53 | ECG ---
[facility] Test Date: 2025-07-04 Test Time: 12:22:42 Pat Name: MARI SWARTZ Department: ED Room: 0217 Gender: F Administrative Law Judge: : 1975 Requested By: KUN GREEN Order Number: [id number] Reading MD: Al Biswas Measurements Intervals [place] Rate: 72 P: 52 IN: 180 QRS: -42 QRSD: 93 T: 62 QT: 409 QTc: 448 Interpretive Statements Sinus rhythm Left axis deviation Anterior infarct, old Electronically Signed On 07-04-2025 20:12:41 PST by Al Biswas Please click the below link to view image of tracing.
[2025-07-04] MEDS: SODIUM CHLORIDE 0.9% 500 ML IV ONE (17:00)
[2025-07-04] MEDS: InsuLIN REG 1unit/0.01ml Soln (100units/ml) SC SCH (17:00)
[2025-07-04] MEDS ORDERED: DEXTROSE (50%) 50ML SYRG IV PRN (17:00)
[2025-07-04] MEDS ORDERED: ONDANSETRON HCL 4 MG/2 ML VIAL IV PRN (17:00)
[2025-07-04] MEDS: ACCU-CHEK COMFORT CURVE STRIP VI SCH (17:00)
--- NOTE | 2025-07-04 18:01 | DVHHP2 ---
History of Present Illness Reason for Visit: Dizziness History of Present Illness 50-year-old female presents for evaluation of dizziness. Patient reports a one day history of developing dizziness blurred vision. She reports her blood pressure reading low in the 50s. She also reports a headache. Denies slurred speech or unilateral weakness. No chest pain or shortness for breath. Past Medical History Dyslipidemia, diabetes mellitus, chronic kidney disease, CVA, hypotension Past Surgical History Denies Family History Hypertension Smoke: No ALCOHOL: none Drugs: None Lives: with Family Review of Systems Review of Systems Review of systems are currently negative otherwise addressed in HPI. Allergies: Coded Allergies: NO KNOWN ALLERGIES (Unverified , 11/28/24) Medications Current Medications Medications Dose Ordered Sig/Kartik Route Start Time Stop Time Status Last Admin Dose Admin Midodrine 2.5 mg BIDWM PO 07/04/25 18:00 Atorvastatin Calcium 40 mg HS PO 07/04/25 22:00 Furosemide 20 mg DAILY PO 07/05/25 10:00 Diagnostic Test (Pha) 1 strip ACHS 07/04/25 17:00 Insulin Human Regular ACHS SC 07/04/25 17:00 Dextrose 50 ml UD PRN IV 07/04/25 17:00 Ondansetron HCl 4 mg Q4HP PRN IV 07/04/25 17:00 Acetaminophen 650 mg Q6HP PRN PO 07/04/25 17:00 Exam Vital Signs Vital Signs Date Time Temp Pulse Resp B/P (MAP) Pulse Ox O2 Delivery O2 Flow Rate FiO2 07/04/25 14:12 97.4 67 16 154/71 (98) 97 97.4 Exam Gen: 50-year-old female in mild distress Skin: Warm, dry, normal color and texture, no rash. HEENT: Normocephalic atraumatic, mucous membranes moist and pink. Neck: Cervical and supraclavicular nodes normal without enlargement, trachea is midline, thyroid gland is normal without masses. Pulmonary: Clear to auscultation and percussion bilaterally. Cardiac: Regular rate and rhythm. No murmur Abdomen: Soft, nontender, nondistended, bowel sounds present all 4 quadrants, no guarding, no rigidity, no organomegaly. Extremities: No cyanosis, clubbing, no edema Neuro: Cranial nerves II through XII grossly intact, normal affect and speech, no focal motor deficits. Labs/Xrays ORDERING PHYSICIAN: SABINA SINGH MD PROCEDURE(s): ECIDC - ECHO 2D MODE CARDIAC DOP REASON: cva ORDER NUMBER(s): [id number], ACCESSION NUMBER(s): [id number] APPROVED REPORT EXAM: Two-dimensional and M-mode echocardiogram with Doppler and color Doppler. Mitral Valve Mitral Mitral Stenosis E/A ratio 0.0 2D MVA cm2 LEFT VENTRICLE The left ventricle is normal size. There is normal left ventricular wall thickness. The left ventricle is normal in structure and function. Left ventricle systolic function is normal. The Ejection Fraction is 55-60%. No regional wall motion abnormalities noted. RIGHT VENTRICLE The right ventricle is normal size. There is normal right ventricular wall thickness. The right ventricular systolic function is normal. ATRIA The left atrium size is normal. The right atrium size is normal. The interatrial septum is intact with no evidence for an atrial septal defect. MITRAL VALVE The mitral valve is normal in structure and function. There is no evidence of mitral valve prolapse. There is no mitral valve stenosis. There is no mitral valve regurgitation noted. PULMONIC VALVE The pulmonary valve is normal in structure and function. There is no pulmonic valvular regurgitation. There is no pulmonic valvular stenosis. TRICUSPID VALVE The tricuspid valve is normal in structure and function. There is no tricuspid valve regurgitation noted. There is no tricuspid valve prolapse or vegetation. There is no tricuspid valve stenosis. AORTIC VALVE The aortic valve is normal in structure and function. No aortic regurgitation is present. There is no aortic valvular stenosis. There is no aortic valvular vegetation. GREAT VESSELS The aortic root is normal in size. PERICARDIAL EFFUSION There is a no pericardial effusion. Conclusion There is normal left ventricular wall thickness. The left ventricle is normal in structure and function. Left ventricle systolic function is normal. The Ejection Fraction is 55-60%. There is no gross valvular pathology There is no pericardial effusion. ORDERING PHYSICIAN: KUN GREEN MD PROCEDURE(s): HWOCT - HEAD WITHOUT CONTRAST REASON: dizziness ORDER NUMBER(s): [id number], ACCESSION NUMBER(s): [id number] CLINICAL INFORMATION: Dizziness. Acute loss of consciousness. TECHNIQUE: Axial imaging was obtained through the brain without contrast. Coronal and sagittal reformatted images were obtained, reviewed, and stored. Images were reviewed in brain and bone windows. All CT scans at this medical facility are performed using dose modulation techniques as appropriate to a performed exam including the following: Automated exposure control was utilized; adjustment of the MA and/or KV according to patient size; and use of iterative reconstruction technique. CTDIvol = 51.87 mGy DLP = 917.38 mGy-cm COMPARISON: MRI BRAIN HEAD WO CONTRAST on DOS: 11/28/24, CT HEAD WITHOUT CONTRAST on DOS: 11/28/24 FINDINGS: There is no acute intracranial hemorrhage. No mass effect or midline shift. Small lucency in the left basal ganglia, may be due to chronic lacunar infarct or prominent perivascular space. The ventricles and sulci are within normal limits in size for age. Basal cisterns are patent. The calvarium is unremarkable. Paranasal sinuses and mastoid air cells are clear. IMPRESSION: 1. No CT evidence of acute intracranial abnormality. 2. Nonacute findings as described above. Labs Test 07/04/25 14:17 07/04/25 12:47 Range/Units Urine Color Light-yellow Yellow Urine Clarity Clear Clear Urine pH 5.0 5.0-9.0 Urine Specific [place] 1.021 1.001-1.035 Urine Protein Trace H Negative Urine Ketones Negative Negative Urine Blood Negative Negative /uL Urine Nitrite Negative Negative Urine Bilirubin Negative Negative Urine Urobilinogen Normal Negative mg/dL Urine Leukocyte Esterase Negative Negative /uL Urine RBC <1 0 - 4 /hpf Urine Microscopic WBC 3 0-5 /HPF Urine Squamous Epithelial Cells Few <5 /hpf Urine Bacteria Few H None Seen /hpf Urine Hyaline Casts Few 0 - 2 /lpf Urine Glucose 4+ H Normal mg/dL White Blood Count 6.0 4.4-10.8 10^3/uL Red Blood Count 4.50 4.0-5.20 10^6/uL Hemoglobin 12.2 12.2-16.2 g/dL Hematocrit 37.8 36.0-46.0 % Mean Corpuscular Volume 84.0 80.0-100.0 fL Mean Corpuscular Hemoglobin 27.2 L 28.0-32.0 pg Mean Corpuscular Hemoglobin Concent 32.4 32.0-36.0 g/dL Red Cell Distribution Width 14.6 H 11.8-14.3 % Platelet Count 206 140-450 10^3/uL Mean Platelet Volume 10.7 6.9-10.8 fL Neutrophils (%) (Auto) 61.7 37.0-80.0 % Lymphocytes (%) (Auto) 26.0 10.0-50.0 % Monocytes (%) (Auto) 8.4 0.0-12.0 % Eosinophils (%) (Auto) 2.9 0.0-7.0 % Basophils (%) (Auto) 1.0 0.0-2.0 % Neutrophils # (Auto) 3.7 1.6-8.6 10 ^3/uL Lymphocytes # (Auto) 1.6 0.4-5.4 10 ^3/uL Monocytes # (Auto) 0.5 0-1.3 10 ^3/uL Eosinophils # (Auto) 0.2 0-0.8 10 ^3/uL Basophils # (Auto) 0.1 0-0.2 10 ^3/uL Nucleated Red Blood Cells 0.1 % Sodium Level 143 136-145 mmol/L Potassium Level 4.6 3.5-5.1 mmol/L Chloride Level 109 H 98-107 mmol/L Carbon Dioxide Level 25 20-31 mmol/L Anion Gap 9 5-15 Blood Urea Nitrogen 35 H 9-23 mg/dL Creatinine 2.25 H 0.550-1.02 mg/dL Glomerular Filtration Rate Calc 26 >90 mL/min BUN/Creatinine Ratio 15.6 10.0-20.0 Serum Glucose 148 H 74-106 mg/dL Calcium Level 9.2 8.7-10.4 mg/dL SEPSIS Sepsis Screen Date sepsis recognized/suspect: Jul 04, 2025 Time Sepsis recognized/suspect: 1238 Recent Procedure: No On Antibiotic Therapy: No Respiratory Rate >20: No Heart Rate >90: No Temp<36 C (96.8 F) or >38.3 C: No SBP <90 or MAP <65 mmHG: Yes (AFTER BOLUS 143/86) New Acute Mental Status Change: No Is the patient on CPAP, BIPAP,: No Physician Orders Heplock Iv (07/04/25 12:30) Systems Integration Engineer (07/04/25 12:30) Blood Pressure (07/04/25 12:30) Pulse Oximetry (07/04/25 12:30) Head Without Contrast (07/04/25 12:30) Electrocardigram (07/04/25 13:30) Electrocardigram (07/04/25 15:30) Midodrine Tablet (Proamatine Tablet) (07/04/25 18:00) Atorvastatin (Lipitor) (07/04/25 22:00) Furosemide Tablet (Lasix Tablet) (07/05/25 10:00) Orthostatic Vital Signs (07/04/25 ) Basic Metabolic Panel (07/05/25 04:00) Sodium Chloride 0.9% (07/04/25 17:00) Glucose Blood (Accu-Chek Comfort Curve T (07/04/25 17:00) Insulin R (Human) (Insulin R) (07/04/25 17:00) Dextrose 50% Syringe (07/04/25 17:00) Admit (07/04/25 16:58) Renal Standard(2gna,3gk,Lopho) (07/04/25 Dinner) Ondansetron Hcl (Zofran) (07/04/25 17:00) Condition: Stable (07/04/25 16:58) Acetaminophen Tablet (Tylenol Tablet) (07/04/25 17:00) Bedrest With Bathroom Privileg (07/04/25 16:58) Vital Signs Date Time Temp Pulse Resp B/P (MAP) Pulse Ox O2 Delivery O2 Flow Rate FiO2 07/04/25 14:12 97.4 67 16 154/71 (98) 97 97.4 07/04/25 12:55 72 07/04/25 12:30 98.0 75 16 57/38 100 98.0 07/04/25 12:25 72 Laboratory Tests Test 07/04/25 12:47 White Blood Count 6.0 10^3/uL (4.4-10.8) Assessment/Plan Assessment/Plan Assessment Symptomatic hypotension Diabetes mellitus Acute kidney injury Plan Admit the patient to Med surge to the hospitalist Orthostatic vital signs pending Med duodenum Resume home medications Continue treatment per orders. Plan discussed with: Patient My Orders Orders - AGNES BLANKENSHIP Procedure Category Date Status Time Midodrine Tablet PHA 07/04/25 In Process (Proamatine Tablet) 18:00 Atorvastatin (Lipitor) PHA 07/04/25 In Process 22:00 Furosemide Tablet PHA 07/05/25 In Process (Lasix Tablet) 10:00 Orthostatic Vital ED NURSING 07/04/25 Transmitted Signs Basic Metabolic Panel LAB 07/05/25 Verified 04:00 Sodium Chloride 0.9% PHA 07/04/25 In Process 17:00 Glucose Blood PHA 07/04/25 In Process (Accu-Chek Comfort 17:00 Insulin R (Human) PHA 07/04/25 In Process (Insulin R) 17:00 Dextrose 50% Syringe PHA 07/04/25 In Process 17:00 Admit ADMIT 07/04/25 Transmitted 16:58 Renal DIET 07/04/25 Transmitted Standard(2gna,3gk,Lopho) Dinner Ondansetron Hcl [facility] 07/04/25 In Process (Zofran) 17:00 Condition: Stable [place] 07/04/25 In Process 16:58 Acetaminophen Tablet PHA 07/04/25 In Process (Tylenol Tablet) 17:00 Bedrest With Bathroom [place] 07/04/25 In Process Privileg 16:58 Date of Service: Jul 04, 2025 Billing Provider: AGNES BLANKENSHIP Common Visit Codes: [id number] INP/OBS CARE (HIGH) AGNES BLANKENSHIP Jul 04, 2025 18:01
[2025-07-04] MEDS: MIDODRINE HCL 10 MG TAB PO SCH (18:42)
[2025-07-04 19:11] VITALS: BP 149/84; PULSE 79; PULSE 82; RESP 16; RESP 17; TEMP 98; O2SAT 97; O2SAT 98
[2025-07-04 20:00] VITALS: PULSE 79; RESP 16; O2SAT 97
[2025-07-04] MEDS ORDERED: ATOR40TA52 PO (20:22)
[2025-07-04] MEDS ORDERED: FAMO-12 PO (20:22)
[2025-07-04] MEDS ORDERED: METF-372 PO (20:22)
[2025-07-04 21:00] VITALS: BP 149/84; PULSE 79; RESP 16; TEMP 98; O2SAT 97
[2025-07-04] MEDS: ATORVASTATIN 20 MG TAB PO SCH (21:26)
[2025-07-05] VITALS (7 sets, daily range): BP systolic 103–142; BP diastolic 62–76; PULSE 67–81; RESP 14–18; TEMP 97.9–98.6; O2SAT 95–96
[2025-07-05 06:22] LABS: Potassium 4.6 mmol/L (3.5-5.1); Sodium 142 mmol/L (136-145)
[2025-07-05 06:23] LABS: Anion Gap 9 (5-15); Carbon Dioxide 25 mmol/L (20-31)
[2025-07-05 06:24] LABS: Calcium 9.0 mg/dL (8.7-10.4)
[2025-07-05 06:29] LABS: BUN/Creatinine Ratio 16.7 (10.0-20.0); Blood Urea Nitrogen 32 mg/dL (9-23); Chloride 108 mmol/L (98-107); Glucose 227 mg/dL (74-106)
[2025-07-05] MEDS: FUROSEMIDE 20 MG TAB PO SCH (09:25)
[2025-07-05] MEDS: ACETAMINOPHEN 325 MG TAB PO PRN (09:26)
--- NOTE | 2025-07-05 19:39 | DVHPN2 ---
Subjective Seen in bed and feeling Reviewed: H&P Changes from previous H/P or p: No Changes Objective Vitals Vital Signs Date Time Temp Pulse Resp B/P (MAP) Pulse Ox O2 Delivery O2 Flow Rate FiO2 07/05/25 16:55 98.2 72 17 142/76 (98) 96 98.2 07/05/25 08:00 Room Air* 0 21 Intake/Output Intake and Output 07/05/25 05:00 Intake Total 820 ml Balance 820 ml Intake Oral 820 ml # Voids 3 General Appearance: Alert, Oriented X3 HEENT: Atraumatic Cardiovascular: Regular rate, Normal S1, Normal S2 Abdomen: Normal bowel sounds Medications Current Medications Medications Dose Ordered Sig/Kartik Route Start Time Stop Time Status Last Admin Dose Admin Midodrine 2.5 mg BIDWM PO 07/04/25 18:00 07/05/25 09:25 2.5 MG Atorvastatin Calcium 40 mg HS PO 07/04/25 22:00 07/04/25 21:26 40 MG Furosemide 20 mg DAILY PO 07/05/25 10:00 07/05/25 09:25 20 MG Diagnostic Test (Pha) 1 strip ACHS 07/04/25 17:00 07/05/25 17:23 1 STRIP Insulin Human Regular ACHS SC 07/04/25 17:00 07/05/25 17:32 8 UNITS Dextrose 50 ml UD PRN IV 07/04/25 17:00 Ondansetron HCl 4 mg Q4HP PRN IV 07/04/25 17:00 Acetaminophen 650 mg Q6HP PRN PO 07/04/25 17:00 07/05/25 09:26 650 MG Laboratory Results Laboratory Tests 07/04/25 12:47 07/05/25 05:42 Chemistry Test 07/05/25 05:42 Calcium Level 9.0 mg/dL (8.7-10.4) Urinalysis Test 07/04/25 14:17 Urine Color Light-yellow (Yellow) Urine Clarity Clear (Clear) Urine pH 5.0 (5.0-9.0) Urine Specific [place] 1.021 (1.001-1.035) Urine Protein Trace (Negative) H Urine Ketones Negative (Negative) Urine Blood Negative /uL (Negative) Urine Nitrite Negative (Negative) Urine Bilirubin Negative (Negative) Urine Urobilinogen Normal mg/dL (Negative) Urine Leukocyte Esterase Negative /uL (Negative) Urine RBC <1 /hpf (0 - 4) Urine Microscopic WBC 3 /HPF (0-5) Urine Squamous Epithelial Cells Few /hpf (<5) Urine Bacteria Few /hpf (None Seen) H Urine Hyaline Casts Few /lpf (0 - 2) Urine Glucose 4+ mg/dL (Normal) H Assessment/Plan Assessment/Plan Symptomatic hypotension Diabetes mellitus Acute kidney injury Continue IVF BMP Daily Plan discussed with: Patient Date of Service: Jul 05, 2025 Billing Provider: JIM CULVER MD Common Visit Codes: [id number] INP/OBS CARE(HIGH) JIM CULVER MD Jul 05, 2025 19:39
[2025-07-06 01:00] VITALS: BP 148/87; PULSE 10; PULSE 70; RESP 16; TEMP 98.3; O2SAT 98
[2025-07-06 05:00] VITALS: BP 136/81; PULSE 74; RESP 16; TEMP 98.6; O2SAT 97
[2025-07-06 07:20] LABS: Anion Gap 11 (5-15); Carbon Dioxide 26 mmol/L (20-31); Potassium 4.4 mmol/L (3.5-5.1); Sodium 144 mmol/L (136-145)
[2025-07-06 07:21] LABS: Calcium 9.5 mg/dL (8.7-10.4)
[2025-07-06 07:26] LABS: BUN/Creatinine Ratio 13.4 (10.0-20.0)
[2025-07-06 07:29] LABS: Blood Urea Nitrogen 25 mg/dL (9-23); Chloride 107 mmol/L (98-107); Glucose 179 mg/dL (74-106)
[2025-07-06 09:00] VITALS: BP 103/64; PULSE 77; RESP 18; TEMP 97; O2SAT 96
[2025-07-06 09:09] VITALS: BP 85/57; TEMP 37
--- NOTE | 2025-07-06 12:09 | DVHDS2 ---
Discharge Summary Date of Admission Jul 04, 2025 at 16:58 Date of Discharge: Jul 06, 2025 Labs/Diagnostic Data: Laboratory Results Test 07/06/25 06:06 07/06/25 05:03 07/04/25 14:17 07/04/25 12:47 POC Glucose 210 mg/dl (70-106) Sodium Level 144 mmol/L (136-145) Potassium Level 4.4 mmol/L (3.5-5.1) Chloride Level 107 mmol/L (98-107) Carbon Dioxide Level 26 mmol/L (20-31) Anion Gap 11 (5-15) Blood Urea Nitrogen 25 mg/dL (9-23) Creatinine 1.87 mg/dL (0.550-1.02) Glomerular Filtration Rate Calc 32 mL/min (>90) BUN/Creatinine Ratio 13.4 (10.0-20.0) Serum Glucose 179 mg/dL (74-106) Calcium Level 9.5 mg/dL (8.7-10.4) Urine Color Light-yellow (Yellow) Urine Clarity Clear (Clear) Urine pH 5.0 (5.0-9.0) Urine Specific [place] 1.021 (1.001-1.035) Urine Protein Trace (Negative) Urine Ketones Negative (Negative) Urine Blood Negative /uL (Negative) Urine Nitrite Negative (Negative) Urine Bilirubin Negative (Negative) Urine Urobilinogen Normal mg/dL (Negative) Urine Leukocyte Esterase Negative /uL (Negative) Urine RBC <1 /hpf (0 - 4) Urine Microscopic WBC 3 /HPF (0-5) Urine Squamous Epithelial Cells Few /hpf (<5) Urine Bacteria Few /hpf (None Seen) Urine Hyaline Casts Few /lpf (0 - 2) Urine Glucose 4+ mg/dL (Normal) White Blood Count 6.0 10^3/uL (4.4-10.8) Red Blood Count 4.50 10^6/uL (4.0-5.20) Hemoglobin 12.2 g/dL (12.2-16.2) Hematocrit 37.8 % (36.0-46.0) Mean Corpuscular Volume 84.0 fL (80.0-100.0) Mean Corpuscular Hemoglobin 27.2 pg (28.0-32.0) Mean Corpuscular Hemoglobin Concent 32.4 g/dL (32.0-36.0) Red Cell Distribution Width 14.6 % (11.8-14.3) Platelet Count 206 10^3/uL (140-450) Mean Platelet Volume 10.7 fL (6.9-10.8) Neutrophils (%) (Auto) 61.7 % (37.0-80.0) Lymphocytes (%) (Auto) 26.0 % (10.0-50.0) Monocytes (%) (Auto) 8.4 % (0.0-12.0) Eosinophils (%) (Auto) 2.9 % (0.0-7.0) Basophils (%) (Auto) 1.0 % (0.0-2.0) Neutrophils # (Auto) 3.7 10 ^3/uL (1.6-8.6) Lymphocytes # (Auto) 1.6 10 ^3/uL (0.4-5.4) Monocytes # (Auto) 0.5 10 ^3/uL (0-1.3) Eosinophils # (Auto) 0.2 10 ^3/uL (0-0.8) Basophils # (Auto) 0.1 10 ^3/uL (0-0.2) Nucleated Red Blood Cells 0.1 % Thyroid Stimulating Hormone (TSH) 0.66 uIU/mL (0.55-4.78) Other Laboratory Tests 07/06/25 05:03 07/04/25 12:47 Brief Hx & Hospital Course: 50-year-old female presents for evaluation of dizziness. Patient reports a one day history of developing dizziness blurred vision. She reports her blood pressure reading low in the 50s. She also reports a headache. Denies slurred speech or unilateral weakness. No chest pain or shortness for breath. Dizziness resolved CT head negative creatinine trended down Condition at Discharge: Good Final Diagnosis/Problems List Acute kidney injury due to VMN Dizzinesss Severe hypotension due to dehydration Discharge Disposition: Home Discharge Instruct/Medications Diet: Regular Activity: No Restrictions, As Tolerated Follow Up/Referral: PCP in 7 days Medications: same home medications Scheduled Atorvastatin Calcium (Atorvastatin Calcium), 1 TAB PO DAILY, (Reported) Empagliflozin (Jardiance), 1 TAB PO DAILY, (Reported) Famotidine (Famotidine), 1 TAB PO DAILY, (Reported) Insulin Glargine (Lantus Solostar), 10 UNITS SC HS, (Reported) Insulin Lispro (Humalog Kwikpen), 2 UNITS SC QAM, (Reported) Metformin Hydrochloride (Metformin Hcl), 1 TAB PO BID, (Reported) Midodrine Hcl (Midodrine Hcl), 1 TAB PO BID, (Reported) Trazodone Hcl (Trazodone Hcl), 1 TAB PO HS, (Reported) Discharge Statement: "Patient was advised to return to the ER or call 911 if any headaches, dizziness, shortness of breath, chest pain, abdominal pain, bleeding, fevers, or worsening of medical condition. Patient was counseled about treatment plan, medications, possible side effects, patientverbalized understanding. All questions were answered to the best of my ability. This discharge took greater then 30 minutes in planning, reviewing documentation, counseling the patient, and discussing with other team members." ASSESSMENT ASSESSMENT Assessment Acute kidney injury due to VMN Dizzinesss Severe hypotension due to dehydration Date of Service: Jul 06, 2025 Billing Provider: JIM CULVER MD Common Visit Codes: 33241-WIP/OBS DISCH DAY >30min JIM CULVER MD Jul 06, 2025 12:09
[2025-07-06 12:36] VITALS: BP 131/75; PULSE 68; RESP 18; TEMP 97.4; O2SAT 96
== END 2025-07-06 13:10 | disposition home or self-care (01) | DRG 207 ==
LOC: EDBD 12:07 → ER 12:07 → OVERFLOW 16:58 → CENTRAL 19:06
PROVIDERS: ADMIT Hospitalist; ATTEND Hospitalist
DX: I95.89 Other hypotension (principal); N17.0 Acute kidney failure with tubular necrosis; E11.22 Type 2 diabetes mellitus with diabetic chronic kidney disease; I12.9 Hypertensive chronic kidney disease with stage 1 through stage 4 chronic kidney disease, or unspecified chronic kidney disease; N18.9 Chronic kidney disease, unspecified; E86.0 Dehydration; E78.5 Hyperlipidemia, unspecified; Z86.73 Personal history of transient ischemic attack (TIA), and cerebral infarction without residual deficits; Z82.49 Family history of ischemic heart disease and other diseases of the circulatory system
CPT/HCPCS: 36415; 70450; 80048; 81001; 82962; 84443; 85025; 93005; 99291; G0378; J1815